=== PATIENT | female | born 1985 | race African-American/Black ===

== ENCOUNTER → 2016-09-13 | Outpatient (CLI) | payer SELFPAY ==
[2016-09-13 13:31] LABS: BASO # 0.2 K/mm3 (0.0-0.2); EOS % 0.4 % (0.0-3.0); LARGE UNSTAINED CELL # 0.1 K/mm3 (0.0-0.4); LARGE UNSTAINED CELL % 0.8 % (0.0-4.0); LYMPH # 1.5 K/mm3 (1.5-6.5); LYMPH % 12.6 % (24.0-44.0); MEAN CORPUSCULAR HEMOGLOBIN 29.8 pg (27.0-33.0); MEAN CORPUSCULAR HGB CONC 33.8 g/dl (32.0-36.5); MEAN CORPUSCULAR VOLUME 88.1 fl (80.0-96.0); MONO # 0.5 K/mm3 (0.0-0.8); MONO % 4.6 % (0.0-5.0); NEUTROPHILS # 8.8 K/mm3 (1.8-7.7); NEUTROPHILS % 79.5 % (36.0-66.0); PLATELET COUNT, AUTOMATED 254 k/mm3 (150-450); RED CELL DISTRIBUTION WIDTH 13.6 % (11.5-14.5)
[2016-09-13 13:59] LABS: HIV SCRN NEGATIVE (NEGATIVE)
[2016-09-13 14:00] LABS: CONTROL LINE INT CTR LINE PRESENT; HIV SCRN1 NEGATIVE (NEGATIVE)
--- NOTE | 2016-09-13 14:43 | REP ---
OBSTETRIC SONOGRAPHY: HISTORY: Supervision of followup anatomy. FINDINGS: Scanning through the gravid uterus demonstrates a viable single intrauterine gestation in a cephalic lie. motion is observed and heart rate is recorder 139 beats per minute. Anterior grade 1 placenta is seen without evidence of previa or abruption. Amniotic fluid is subjectively normal. Closed cervical length is 3.4 cm. No extrauterine abnormality is observed. There has been appropriate interval growth. No anomaly is seen. The following anatomic structures are identified and felt to be sonographically unremarkable: cranium, choroid plexus, cavum, cerebellum and posterior fossa, face and profile, lungs, four-chamber heart with left and right ventricular outflow tract views, diaphragm, left-sided stomach, abdominal wall cord insertion, three-vessel umbilical cord, kidneys and bladder, spine, upper and lower extremities. Biometry Chart: BPD 7.3 cm = 29 weeks 1 day HC 25.4 cm = 27 weeks 4 days AC 23.0 cm = 27 weeks 3 days FL 5.3 cm = 28 weeks 0 days HL 4.6 cm = 27 weeks 2 days CD 3.4 cm = 28 weeks 6 days HC/AC ratio normal 1.1. Cephalic index normal 0.8. Estimated weight 1119 grams, 2 pounds 7 ounces, 45th percentile for 27 weeks 4 days. IMPRESSION: Viable single intrauterine gestation at 27-week 4 days by today's composite sonographic criteria. Expected gestational age estimate based on prior sonography is 27 weeks 4 days as well. RAFAEL by prior sonography December 09, 2016. anatomic survey is felt to be complete. Signed by Corona Domínguez MD 09/13/2016 03:00 P
[2016-09-14 10:35] LABS: HBsAg Prenatal NEGATIVE (NEGATIVE)
== END ==
LOC: M SMT 10:04
PROVIDERS: ATTEND Advanced Practice Midwife
DX: Z34.82 Encounter for supervision of other normal pregnancy, second trimester (principal); Z36 Encounter for antenatal screening of mother; Z3A.27 27 weeks gestation of pregnancy

== ENCOUNTER 2016-09-19 17:34 | Emergency (ER) | payer SELFPAY ==
[2016-09-19] MEDS ORDERED: METOCLOPRAMIDE INJ 10MG/2ML VIAL (J2765) As Ordered ONE (19:16)
[2016-09-19 19:21] LABS: EOS # 0.1 K/mm3 (0.0-0.50); EOS % 0.8 % (0.0-3.0); LARGE UNSTAINED CELL % 0.4 % (0.0-4.0); LYMPH # 0.5 K/mm3 (1.5-6.5); LYMPH % 4.5 % (24.0-44.0); MEAN CORPUSCULAR HEMOGLOBIN 30.4 pg (27.0-33.0); MEAN CORPUSCULAR VOLUME 89.4 fl (80.0-96.0); MONO # 0.2 K/mm3 (0.0-0.8); NEUTROPHILS # 10.3 K/mm3 (1.8-7.7); NEUTROPHILS % 92.4 % (36.0-66.0); PLATELET COUNT, AUTOMATED 253 k/mm3 (150-450); RED CELL DISTRIBUTION WIDTH 12.6 % (11.5-14.5); WHITE BLOOD COUNT 11.1 K/mm3 (4.0-10.0)
[2016-09-19 19:45] LABS: ALBUMIN 3.3 GM/DL (3.2-5.2); ALKALINE PHOSPHATASE 116 U/L (45-117); ALT/SGPT 33 U/L (12-78); AMYLASE 179 U/L (25-115); ANION GAP 11 MEQ/L (8-16); AST/SGOT 25 U/L (15-37); BILIRUBIN,DIRECT 0.1 MG/DL (0.0-0.2); BILIRUBIN,TOTAL 0.5 MG/DL (0.2-1.0); BLOOD UREA NITROGEN 7 MG/DL (7-18); CARBON DIOXIDE LEVEL 24 MEQ/L (21-32); CHLORIDE LEVEL 105 MEQ/L (98-107); CREATININE FOR GFR 0.63 MG/DL (0.55-1.02); GLOMERULAR FILTRATION RATE > 60.0 (>60); GLUCOSE, FASTING 95 MG/DL (70-105); POTASSIUM SERUM 3.1 MEQ/L (3.5-5.1); SODIUM LEVEL 140 MEQ/L (136-145); TOTAL PROTEIN 8.8 GM/DL (6.4-8.2)
[2016-09-19] MEDS ORDERED: ACETAMINOPHEN 325 MG TAB As Ordered ONE (20:29)
--- NOTE | 2016-09-19 22:22 | EDDOCDS ---
Physician Documentation [facility] Name: Rosemarie Taveras Age: 30 yrs Sex: Female : 1985 Arrival Date: 09/19/2016 Time: 17:34 Bed I3 / M3 Private MD: NO PRIMARY PHYSICIAN, . Disposition: 09/19/16 22:08 Discharged to Home/Self Care. Impression: Vomiting, Dehydration, 28 weeks gestation of . - Condition is Stable. - Discharge Instructions: Dehydration, Adult, Nausea and Vomiting. - Medication Reconciliation, Local Pharmacy Hours form. - Follow up: Randa Lara MD; When: Call to arrange an appointment; Reason: Recheck today's complaints, Continuance of care. - Problem is new. - Symptoms are unchanged. Historical: - Allergies: No known drug Allergies; - Home Meds: 1. Ran out of vitamins (needs prescription) - PMHx: Peptic Ulcer Disease; - PSHx: Cholecystectomy; - Social history: Smoking status: Patient states was never smoker of tobacco. No barriers to communication noted, The patient speaks fluent Mexican, Speaks appropriately for age. - Family history: Not pertinent. - : The pt / caregiver states he / she is not on anticoagulants. Home medication list is obtained from the patient. - Exposure Risk Screening:: None identified. 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 11 in. (149.86 cm) (R); Pain 3/10; 22:18 BP 106 / 77; Pulse 101; Resp 18; Temp 98.2; Pulse Ox 100% ; Pain 0/10; ajs 17:36 Body Mass Index 30.50 (68.49 kg, 149.86 cm) gr2 MDM: 18:34 Urinalysis Ordered. EDMS 18:34 Urine Culture Ordered. EDMS 18:43 NS 0.9% 1000 ml IV at bolus once ordered. mo1 18:43 IV Saline Lock ordered. mo1 18:43 Metoclopramide 10 mg IV at 40 mg/hr once over 15 mins ordered. mo1 18:43 Heart Tones ordered. mo1 18:43 Basic Metabolic Profile Ordered. EDMS 18:43 CBC with Diff Ordered. EDMS 18:43 Lipase Ordered. EDMS 18:43 Liver Profile Ordered. EDMS 18:43 Amylase Ordered. EDMS 18:44 NOTHING BY MOUTH+DIET ordered. EDMS 19:19 Financial registration complete. gjb 19:22 [facility] Payment Agreement was scanned into [employer] and attached to record. gjb 19:46 CBC with Diff Reviewed. mo1 20:03 Amylase Reviewed. mo1 20:03 Liver Profile Reviewed. mo1 20:04 Basic Metabolic Profile Reviewed. mo1 20:04 Urinalysis Reviewed. mo1 20:04 Lipase Reviewed. mo1 20:05 NS 0.9% 1000 ml IV at bolus once ordered. mo1 20:28 Acetaminophen Tablet 975 mg PO once ordered. mo1 Administered Medications: 19:24 Drug: NS 0.9% 1000 ml [sodium chloride 0.9 % intravenous solution] Route: IV; Rate: js15 bolus; Site: left antecubital; 20:40 Follow up: IV Status: Completed infusion; IV Intake: 1000ml js15 20:46 Follow up: IV Intake: 1000ml mb9 19:25 Drug: Metoclopramide 10 mg [metoclopramide 5 mg/mL injection solution] Route: IV; Rate: js15 40 mg/hr; Infused Over: 15 mins; Site: left antecubital; 20:33 Drug: Acetaminophen 975 mg [acetaminophen 325 mg tablet (3 tabs)] Route: PO; mb9 20:46 Drug: NS 0.9% 1000 ml [sodium chloride 0.9 % intravenous solution] Route: IV; Rate: mb9 bolus; Site: left antecubital; 22:18 Follow up: IV Status: Completed infusion; IV Intake: 1000ml js15 Signatures: Dispatcher [employer] Christy Gentile RN RN jo3 O'Hagan, Michael, PA PA mo1 Kylee Acevedo RN RN js15 Marina Barnett Michael RN mb9 The chart was reviewed and I authenticate all verbal orders and agree with the evaluation and treatment provided.Attachments: 19:22 [facility] Payment Agreement [facility] MTDD
--- NOTE | 2016-09-19 22:22 | EDDOCDS ---
Nurse's Notes [facility] Name: Rosemarie Taveras Age: 30 yrs Sex: Female : 1985 Arrival Date: 09/19/2016 Time: 17:34 Bed I3 / M3 Private MD: NO PRIMARY PHYSICIAN, . Diagnosis: Vomiting;Dehydration;28 weeks gestation of Presentation: 09/19 17:44 Presenting complaint: Patient states: Vomiting since 0300 and having right sided jo3 back/flank pain. Pt is 28 weeks . Adult Sepsis Screening: The patient does not have new or worsening altered mentation. Patient's respiratory rate is less than 22. Systolic blood pressure is greater than 100. Patient has a qSOFA score of 0- Negative Sepsis Screen. Suicide/Homicide risk assessment- the patient denies having any suicidal and/or homicidal ideations and does not present with any other emotional, behavioral or mental health complaints. 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 Transition of care: patient was not received from another setting of care. 17:44 Acuity: MALVIN Level 3 jo3 17:44 Method Of Arrival: Walkin/Carried/Asstd jo3 Triage Assessment: 17:46 General: Appears in no apparent distress, uncomfortable, Behavior is appropriate for jo3 age, cooperative. Pain: Pain currently is 9 out of 10 on a pain scale. HIV screening NA for this visit Offered previously. Neurological: Level of Consciousness is awake, alert, Oriented to person, place, time. Respiratory: Airway is patent Respiratory effort is even, unlabored. Derm: Skin is pink, warm & dry. INSPECTOR: 17:46 LMP 03/04/2016 jo3 Historical: - Allergies: No known drug Allergies; - Home Meds: 1. Ran out of vitamins (needs prescription) - PMHx: Peptic Ulcer Disease; - PSHx: Cholecystectomy; - Social history: Smoking status: Patient states was never smoker of tobacco. No barriers to communication noted, The patient speaks fluent Thai, Speaks appropriately for age. - Family history: Not pertinent. - : The pt / caregiver states he / she is not on anticoagulants. Home medication list is obtained from the patient. - Exposure Risk Screening:: None identified. Screenin:05 Screening information is obtained from the patient. Fall risk: No risks identified. js15 Assistance ADL's: requires no assistance with activities of daily living. Abuse/DV Screen: The patient / caregiver reports he/she is: not in a situation that causes fear, pain or injury. Nutritional screening: No deficits noted. Advance Directives: There is no active DNR order. home support is adequate. Assessment: 20:04 General: Appears in no apparent distress, uncomfortable, Behavior is appropriate for js15 age, cooperative. Pain: Location: back and epigastric area Pain currently is 8 out of 10 on a pain scale. Neurological: Level of Consciousness is awake, alert, obeys commands, Oriented to person, place, time. Cardiovascular: Capillary refill < 3 seconds Heart tones S1 S2 present. Respiratory: Airway is patent Respiratory effort is even, unlabored, Respiratory pattern is regular, symmetrical. GI: Bowel sounds present X 4 quads. Abd is soft X 4 quads Abd is tender to palpation in epigastric area. GI: Abdomen is gravid Reports nausea, vomiting. Derm: Skin is normal. 21:15 Reassessment: Patient appears in no apparent distress at this time. Pt resting on js15 stretcher with friend at bedside, watching tv and using cell phone; reports relief of nausea; respirations even and unlabored; skin normal, warm, dry. 22:16 Reassessment: Patient appears in no apparent distress at this time. Patient states js15 feeling better. Patient states symptoms have improved. Pt resting on stretcher, respirations even and unlabored; skin normal, warm, dry. Vital Signs: 17:36 BP 127 / 64; Pulse 107; Resp 18 S; Temp 99.1(O); Pulse Ox 100% on R/A; Weight 68.49 kg gr2 (R); Height 4 ft. 11 in. (149.86 cm) (R); Pain 3/10; 22:18 BP 106 / 77; Pulse 101; Resp 18; Temp 98.2; Pulse Ox 100% ; Pain 0/10; ajs 17:36 Body Mass Index 30.50 (68.49 kg, 149.86 cm) gr2 Vitals: 17:36 Log In Time: September 19, 2016 at 17:36. gr2 19:35 Heart Tones 165BPM. 15 ED Course: 17:35 Patient visited by Kevin Limon. gr2 17:35 Patient moved to Waiting gr2 17:36 NO PRIMARY PHYSICIAN, . is Private Physician. gr2 17:37 Patient visited by Kevin Limon. gr2 17:37 Patient moved to Pre RCE gr2 17:45 Triage Initiated jo3 17:47 Patient visited by Christy Mackay,GUSTAVO. jo3 17:47 Patient moved to Triage 2 jo3 18:27 Patient visited by Merary Rutherford,GUSTAVO. ck1 18:31 Terry Sutton PA is PHCP. mo1 18:31 Mateo Aldrich MD is Attending Physician. mo1 18:34 Urine Culture Sent. ck1 18:34 Urinalysis Sent. ck1 18:35 Patient visited by Terry Sutton PA. mo1 18:41 Patient moved to I3 / M3 ck1 19:15 Inserted saline lock: 20 gauge in left antecubital area The patient tolerated the js15 procedure well. 19:22 [facility] Payment Agreement was scanned into [employer] and attached to record. gjb 19:25 Patient name changed from Rosemarie\S\\S\Taveras\S\ to Rosemarie\S\ \S\Taveras. EDMS 19:39 Patient visited by Kylee Acevedo RN. js15 19:40 The patient / caregiver is instructed regarding the plan of care and ED course. js15 20:35 Patient visited by Kylee Acevedo RN. js15 21:25 Patient visited by Kylee Acevedo RN. js15 22:08 Randa Lara MD is Referral Physician. mo1 22:17 Discontinued IV lock intact, bleeding controlled, pressure dressing applied, No js15 redness/swelling at site. No procedures done that require assistance. 22:18 Patient visited by Elly Lemos. ajs Administered Medications: 19:24 Drug: NS 0.9% 1000 ml [sodium chloride 0.9 % intravenous solution] Route: IV; Rate: js15 bolus; Site: left antecubital; 20:40 Follow up: IV Status: Completed infusion; IV Intake: 1000ml js15 20:46 Follow up: IV Intake: 1000ml mb9 19:25 Drug: Metoclopramide 10 mg [metoclopramide 5 mg/mL injection solution] Route: IV; Rate: js15 40 mg/hr; Infused Over: 15 mins; Site: left antecubital; 20:33 Drug: Acetaminophen 975 mg [acetaminophen 325 mg tablet (3 tabs)] Route: PO; mb9 20:46 Drug: NS 0.9% 1000 ml [sodium chloride 0.9 % intravenous solution] Route: IV; Rate: mb9 bolus; Site: left antecubital; 22:18 Follow up: IV Status: Completed infusion; IV Intake: 1000ml js15 Intake: 20:40 IV: 1000.00ml; Total: 1000.00ml. js15 20:46 IV: 1000.00ml; Total: 2000.00ml. mb9 22:18 IV: 1000.00ml; Total: 3000.00ml. js15 Order Results: Lab Order: Urinalysis; SPEC'M 09/19/16 17:52 Test: APPEARANCE, URINE; Value: HAZY; Range: CLEAR; Status: F Test: COLOR, URINE; Value: YELLOW; Range: YELLOW; Status: F Test: PH,URINE; Value: 5.0; Range: 5.0-9.0; Units: UNITS; Status: F Test: SPECIFIC GRAVITY URINE AUTO; Value: 1.020; Range: 1.002-1.035; Status: F Test: PROTEIN, URINE AUTO; Value: 1+; Range: NEGATIVE; Abnormal: Above high normal; Units: mg/dL; Status: F Test: GLUCOSE, URINE (UA) AUTO; Value: NEGATIVE; Range: NEGATIVE; Units: mg/dL; Status: F Test: KETONE, URINE AUTO; Value: 2+; Range: NEGATIVE; Abnormal: Above high normal; Units: mg/dL; Status: F Test: UROBILINOGEN, URINE AUTO; Value: 0.2; Range: 0.0-2.0; Units: mg/dL; Status: F Test: BILIRUBIN, URINE AUTO; Value: NEGATIVE; Range: NEGATIVE; Status: F Test: NITRITE, URINE AUTO; Value: NEGATIVE; Range: NEGATIVE; Status: F Test: LEUKOCYTE ESTERASE, URINE AUTO; Value: NEGATIVE; Range: NEGATIVE; Status: F Test: BLOOD, URINE BLOOD; Value: NEGATIVE; Range: NEGATIVE; Status: F Test: WBC, URINE AUTO; Value: 5; Range: 0-3; Abnormal: Above high normal; Units: /HPF; Status: F Test: RBC, URINE AUTO; Value: 1; Range: 0-3; Units: /HPF; Status: F Test: BACTERIA, URINE AUTO; Value: NEGATIVE; Range: NEGATIVE; Status: F Test: SQUAMOUS EPITHELIAL CELL UR AU; Value: 3; Range: 0-6; Units: /HPF; Status: F Test: MUCUS, URINE; Value: SMALL; Range: NEGATIVE; Status: F Test: HYALINE CAST, URINE AUTO; Value: 0; Range: 0-1; Units: /LPF; Status: F Lab Order: Basic Metabolic Profile; SPEC'M 09/19/16 19:13 Test: GLUCOSE, FASTING; Value: 95; Range: 70-105; Units: MG/DL; Status: F Test: BLOOD UREA NITROGEN; Value: 7; Range: 7-18; Units: MG/DL; Status: F Test: CREATININE FOR GFR; Value: 0.63; Range: 0.55-1.02; Units: MG/DL; Status: F Test: GLOMERULAR FILTRATION RATE; Value: > 60.0; Range: >60; Status: F Test: SODIUM LEVEL; Value: 140; Range: 136-145; Units: MEQ/L; Status: F Test: POTASSIUM SERUM; Value: 3.1; Range: 3.5-5.1; Abnormal: Below low normal; Units: MEQ/L; Status: F Test: CHLORIDE LEVEL; Value: 105; Range: 98-107; Units: MEQ/L; Status: F Test: CARBON DIOXIDE LEVEL; Value: 24; Range: 21-32; Units: MEQ/L; Status: F Test: ANION GAP; Value: 11; Range: 8-16; Units: MEQ/L; Status: F Test: CALCIUM LEVEL; Value: 9.0; Range: 8.5-10.1; Units: MG/DL; Status: F Test Note: ; Units are mL/min/1.73 m2 Chronic Kidney Disease Staging per NKF: Stage I & II GFR >=60 Normal to Mildly Decreased Stage III GFR 30-59 Moderately Decreased Stage IV GFR 15-29 Severely Decreased Stage V GFR <15 Very Little GFR Left ESRD GFR <15 on ANALYSIS SPECIALIST Lab Order: CBC with Diff; SPEC'M 09/19/16 19:13 Test: WHITE BLOOD COUNT; Value: 11.1; Range: 4.0-10.0; Abnormal: Above high normal; Units: K/mm3; Status: F Test: RED BLOOD COUNT; Value: 4.46; Range: 4.00-5.40; Units: M/mm3; Status: F Test: HEMOGLOBIN; Value: 13.5; Range: 12.0-16.0; Units: g/dl; Status: F Test: HEMATOCRIT; Value: 39.9; Range: 36.0-47.0; Units: %; Status: F Test: MEAN CORPUSCULAR VOLUME; Value: 89.4; Range: 80.0-96.0; Units: fl; Status: F Test: MEAN CORPUSCULAR HEMOGLOBIN; Value: 30.4; Range: 27.0-33.0; Units: pg; Status: F Test: MEAN CORPUSCULAR HGB CONC; Value: 34.0; Range: 32.0-36.5; Units: g/dl; Status: F Test: RED CELL DISTRIBUTION WIDTH; Value: 12.6; Range: 11.5-14.5; Units: %; Status: F Test: PLATELET COUNT, AUTOMATED; Value: 253; Range: 150-450; Units: k/mm3; Status: F Test: NEUTROPHILS %; Value: 92.4; Range: 36.0-66.0; Abnormal: Above high normal; Units: %; Status: F Test: LYMPH %; Value: 4.5; Range: 24.0-44.0; Abnormal: Below low normal; Units: %; Status: F Test: MONO %; Value: 2.0; Range: 0.0-5.0; Units: %; Status: F Test: EOS %; Value: 0.8; Range: 0.0-3.0; Units: %; Status: F Test: BASO %; Value: 0.0; Range: 0.0-1.0; Units: %; Status: F Test: LARGE UNSTAINED CELL %; Value: 0.4; Range: 0.0-4.0; Units: %; Status: F Test: NEUTROPHILS #; Value: 10.3; Range: 1.8-7.7; Abnormal: Above high normal; Units: K/mm3; Status: F Test: LYMPH #; Value: 0.5; Range: 1.5-6.5; Abnormal: Below low normal; Units: K/mm3; Status: F Test: MONO #; Value: 0.2; Range: 0.0-0.8; Units: K/mm3; Status: F Test: EOS #; Value: 0.1; Range: 0.0-0.50; Units: K/mm3; Status: F Test: BASO #; Value: 0.0; Range: 0.0-0.2; Units: K/mm3; Status: F Test: LARGE UNSTAINED CELL #; Value: 0.0; Range: 0.0-0.4; Units: K/mm3; Status: F Lab Order: Lipase; [facility] 09/19/16 19:13 Test: LIPASE; Value: 144; Range: 73-393; Units: U/L; Status: F Lab Order: Liver Profile; [facility] 09/19/16 19:13 Test: AST/SGOT; Value: 25; Range: 15-37; Units: U/L; Status: F Test: ALT/SGPT; Value: 33; Range: 12-78; Units: U/L; Status: F Test: ALKALINE PHOSPHATASE; Value: 116; Range: 45-117; Units: U/L; Status: F Test: BILIRUBIN,TOTAL; Value: 0.5; Range: 0.2-1.0; Units: MG/DL; Status: F Test: BILIRUBIN,DIRECT; Value: 0.1; Range: 0.0-0.2; Units: MG/DL; Status: F Test: TOTAL PROTEIN; Value: 8.8; Range: 6.4-8.2; Abnormal: Above high normal; Units: GM/DL; Status: F Test: ALBUMIN; Value: 3.3; Range: 3.2-5.2; Units: GM/DL; Status: F Test: ALBUMIN/GLOBULIN RATIO; Value: 0.60; Range: 1.00-1.93; Abnormal: Below low normal; Status: F Lab Order: Amylase; [facility] 09/19/16 19:13 Test: AMYLASE; Value: 179; Range: 25-115; Abnormal: Above high normal; Units: U/L; Status: F Outcome: 22:08 Discharge ordered by Provider. mo1 22:17 Discharge Assessment: Patient awake, alert and oriented x 3. No cognitive and/or js15 functional deficits noted. Patient verbalized understanding of disposition instructions. patient administered narcotics - no. The following High Risk Discharge criteria are identified: None. Discharged to home ambulatory. Condition: stable. Discharge instructions given to patient, Instructed on discharge instructions, follow up and referral plans. Demonstrated understanding of instructions, Pt was receptive of discharge instructions/ teaching. No special radiology studies were completed. Property sent home with patient. 22:21 Patient left the ED. js15 Signatures: Dispatcher [employer] EDMS Merary Rutherford,RN RN ck1 Christy Mackay,RN RN jo3 Elly Lemos [place] gr2 Terry Sutton PA PA [email or web address] Terry Soto,RN RN mb9 Kylee AcevedoRN RN js15 Marina Barnett [place]
--- NOTE | 2016-09-21 23:22 | EDDOCDS ---
Nurse's Notes [facility] Name: Rosemarie Taveras Age: 30 yrs Sex: Female : 1985 Arrival Date: 09/19/2016 Time: 17:34 Bed I3 / M3 Private MD: NO PRIMARY PHYSICIAN, . Diagnosis: Vomiting;Dehydration;28 weeks gestation of Presentation: 09/19 17:44 Presenting complaint: Patient states: Vomiting since 0300 and having right sided jo3 back/flank pain. Pt is 28 weeks . Adult Sepsis Screening: The patient does not have new or worsening altered mentation. Patient's respiratory rate is less than 22. Systolic blood pressure is greater than 100. Patient has a qSOFA score of 0- Negative Sepsis Screen. Suicide/Homicide risk assessment- the patient denies having any suicidal and/or homicidal ideations and does not present with any other emotional, behavioral or mental health complaints. Status: Patient is not a director water and waste services or dependent. Transition of care: patient was not received from another setting of care. 17:44 Acuity: MALVIN Level 3 jo3 17:44 Method Of Arrival: Walkin/Carried/Asstd jo3 Triage Assessment: 17:46 General: Appears in no apparent distress, uncomfortable, Behavior is appropriate for jo3 age, cooperative. Pain: Pain currently is 9 out of 10 on a pain scale. HIV screening NA for this visit Offered previously. Neurological: Level of Consciousness is awake, alert, Oriented to person, place, time. Respiratory: Airway is patent Respiratory effort is even, unlabored. Derm: Skin is pink, warm & dry. 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 Ran out of vitamins (needs prescription) - PMHx: Peptic Ulcer Disease; - PSHx: Cholecystectomy; - Social history: Smoking status: Patient states was never smoker of tobacco. No barriers to communication noted, The patient speaks fluent Hebrew, Speaks appropriately for age. - Family history: Not pertinent. - : The pt / caregiver states he / she is not on anticoagulants. Home medication list is obtained from the patient. - Exposure Risk Screening:: None identified. Screenin:05 Screening information is obtained from the patient. Fall risk: No risks identified. js15 Assistance ADL's: requires no assistance with activities of daily living. Abuse/DV Screen: The patient / caregiver reports he/she is: not in a situation that causes fear, pain or injury. Nutritional screening: No deficits noted. Advance Directives: There is no active DNR order. home support is adequate. Assessment: 20:04 General: Appears in no apparent distress, uncomfortable, Behavior is appropriate for js15 age, cooperative. Pain: Location: back and epigastric area Pain currently is 8 out of 10 on a pain scale. Neurological: Level of Consciousness is awake, alert, obeys commands, Oriented to person, place, time. Cardiovascular: Capillary refill < 3 seconds Heart tones S1 S2 present. Respiratory: Airway is patent Respiratory effort is even, unlabored, Respiratory pattern is regular, symmetrical. GI: Bowel sounds present X 4 quads. Abd is soft X 4 quads Abd is tender to palpation in epigastric area. GI: Abdomen is gravid Reports nausea, vomiting. Derm: Skin is normal. 21:15 Reassessment: Patient appears in no apparent distress at this time. Pt resting on js15 stretcher with friend at bedside, watching tv and using cell phone; reports relief of nausea; respirations even and unlabored; skin normal, warm, dry. 22:16 Reassessment: Patient appears in no apparent distress at this time. Patient states js15 feeling better. Patient states symptoms have improved. Pt resting on stretcher, respirations even and unlabored; skin normal, warm, dry. Vital Signs: 17:36 BP 127 / 64; Pulse 107; Resp 18 S; Temp 99.1(O); Pulse Ox 100% on R/A; Weight 68.49 kg gr2 (R); Height 4 ft. 11 in. (149.86 cm) (R); Pain 3/10; 22:18 BP 106 / 77; Pulse 101; Resp 18; Temp 98.2; Pulse Ox 100% ; Pain 0/10; ajs 17:36 Body Mass Index 30.50 (68.49 kg, 149.86 cm) gr2 Vitals: 17:36 Log In Time: September 19, 2016 at 17:36. gr2 19:35 Heart Tones 165BPM. 15 ED Course: 17:35 Patient visited by Kevin Limon. gr2 17:35 Patient moved to Waiting gr2 17:36 NO PRIMARY PHYSICIAN, . is Private Physician. gr2 17:37 Patient visited by Kevin Limon. gr2 17:37 Patient moved to Pre RCE gr2 17:45 Triage Initiated jo3 17:47 Patient visited by Christy Mackay,GUSTAVO. jo3 17:47 Patient moved to Triage 2 jo3 18:27 Patient visited by Merary Rutherford,GUSTAVO. ck1 18:31 Terry Sutton PA is PHCP. mo1 18:31 Mateo Aldrich MD is Attending Physician. mo1 18:34 Urine Culture Sent. ck1 18:34 Urinalysis Sent. ck1 18:35 Patient visited by Terry Sutton PA. mo1 18:41 Patient moved to I3 / M3 ck1 19:15 Inserted saline lock: 20 gauge in left antecubital area The patient tolerated the js15 procedure well. 19:22 [facility] [place] was scanned into Fluid-1 and attached to record. gjb 19:25 Patient name changed from Rosemarie\S\\S\Taveras\S\ to Rosemarie\S\ \S\Taveras. EDMS 19:39 Patient visited by Kylee Acevedo RN. js15 19:40 The patient / caregiver is instructed regarding the plan of care and ED course. js15 20:35 Patient visited by Kylee Acevedo,GUSTAVO. js15 21:25 Patient visited by Kylee Acevedo,GUSTAVO. js15 22:08 Randa Lara MD is Referral Physician. mo1 22:17 Discontinued IV lock intact, bleeding controlled, pressure dressing applied, No js15 redness/swelling at site. No procedures done that require assistance. 22:18 Patient visited by Elly Lemos. ajs 02 12:20 T-Sheet-- Draft Copy was scanned into Fluid-1 and attached to record. gb Administered Medications: 09/19 19:24 Drug: NS 0.9% 1000 ml [sodium chloride 0.9 % intravenous solution] Route: IV; Rate: js15 bolus; Site: left antecubital; 20:40 Follow up: IV Status: Completed infusion; IV Intake: 1000ml js15 20:46 Follow up: IV Intake: 1000ml mb9 19:25 Drug: Metoclopramide 10 mg [metoclopramide 5 mg/mL injection solution] Route: IV; Rate: js15 40 mg/hr; Infused Over: 15 mins; Site: left antecubital; 20:33 Drug: Acetaminophen 975 mg [acetaminophen 325 mg tablet (3 tabs)] Route: PO; mb9 20:46 Drug: NS 0.9% 1000 ml [sodium chloride 0.9 % intravenous solution] Route: IV; Rate: mb9 bolus; Site: left antecubital; 22:18 Follow up: IV Status: Completed infusion; IV Intake: 1000ml js15 Intake: 20:40 IV: 1000.00ml; Total: 1000.00ml. js15 20:46 IV: 1000.00ml; Total: 2000.00ml. mb9 22:18 IV: 1000.00ml; Total: 3000.00ml. js15 Order Results: Lab Order: Urinalysis; SPEC'M 09/19/16 17:52 Test: APPEARANCE, URINE; Value: HAZY; Range: CLEAR; Status: F Test: COLOR, URINE; Value: YELLOW; Range: YELLOW; Status: F Test: PH,URINE; Value: 5.0; Range: 5.0-9.0; Units: UNITS; Status: F Test: SPECIFIC GRAVITY URINE AUTO; Value: 1.020; Range: 1.002-1.035; Status: F Test: PROTEIN, URINE AUTO; Value: 1+; Range: NEGATIVE; Abnormal: Above high normal; Units: mg/dL; Status: F Test: GLUCOSE, URINE (UA) AUTO; Value: NEGATIVE; Range: NEGATIVE; Units: mg/dL; Status: F Test: KETONE, URINE AUTO; Value: 2+; Range: NEGATIVE; Abnormal: Above high normal; Units: mg/dL; Status: F Test: UROBILINOGEN, URINE AUTO; Value: 0.2; Range: 0.0-2.0; Units: mg/dL; Status: F Test: BILIRUBIN, URINE AUTO; Value: NEGATIVE; Range: NEGATIVE; Status: F Test: NITRITE, URINE AUTO; Value: NEGATIVE; Range: NEGATIVE; Status: F Test: LEUKOCYTE ESTERASE, URINE AUTO; Value: NEGATIVE; Range: NEGATIVE; Status: F Test: BLOOD, URINE BLOOD; Value: NEGATIVE; Range: NEGATIVE; Status: F Test: WBC, URINE AUTO; Value: 5; Range: 0-3; Abnormal: Above high normal; Units: /HPF; Status: F Test: RBC, URINE AUTO; Value: 1; Range: 0-3; Units: /HPF; Status: F Test: BACTERIA, URINE AUTO; Value: NEGATIVE; Range: NEGATIVE; Status: F Test: SQUAMOUS EPITHELIAL CELL UR AU; Value: 3; Range: 0-6; Units: /HPF; Status: F Test: MUCUS, URINE; Value: SMALL; Range: NEGATIVE; Status: F Test: HYALINE CAST, URINE AUTO; Value: 0; Range: 0-1; Units: /LPF; Status: F Lab Order: Urine Culture; SPEC'M 09/19/16 17:52 Test: URINE CULTURE; Value: <EXTERNAL COMMENT eCWMed> FULL REPORT IN LAB NOTES (eCW and Medent).; Status: F Test: URINE CULTURE; Value: URINE CULTURE RESULT NO GROWTH CLINICAL SIGNIFICANCE 1 ORGANISM; Status: F Lab Order: Basic Metabolic Profile; SPEC'M 09/19/16 19:13 Test: GLUCOSE, FASTING; Value: 95; Range: 70-105; Units: MG/DL; Status: F Test: BLOOD UREA NITROGEN; Value: 7; Range: 7-18; Units: MG/DL; Status: F Test: CREATININE FOR GFR; Value: 0.63; Range: 0.55-1.02; Units: MG/DL; Status: F Test: GLOMERULAR FILTRATION RATE; Value: > 60.0; Range: >60; Status: F Test: SODIUM LEVEL; Value: 140; Range: 136-145; Units: MEQ/L; Status: F Test: POTASSIUM SERUM; Value: 3.1; Range: 3.5-5.1; Abnormal: Below low normal; Units: MEQ/L; Status: F Test: CHLORIDE LEVEL; Value: 105; Range: 98-107; Units: MEQ/L; Status: F Test: CARBON DIOXIDE LEVEL; Value: 24; Range: 21-32; Units: MEQ/L; Status: F Test: ANION GAP; Value: 11; Range: 8-16; Units: MEQ/L; Status: F Test: CALCIUM LEVEL; Value: 9.0; Range: 8.5-10.1; Units: MG/DL; Status: F Test Note: ; Units are mL/min/1.73 m2 Chronic Kidney Disease Staging per NKF: Stage I & II GFR >=60 Normal to Mildly Decreased Stage III GFR 30-59 Moderately Decreased Stage IV GFR 15-29 Severely Decreased Stage V GFR <15 Very Little GFR Left ESRD GFR <15 on SPACE BUYER Lab Order: CBC with Diff; STEVEN 09/19/16 19:13 Test: WHITE BLOOD COUNT; Value: 11.1; Range: 4.0-10.0; Abnormal: Above high normal; Units: K/mm3; Status: F Test: RED BLOOD COUNT; Value: 4.46; Range: 4.00-5.40; Units: M/mm3; Status: F Test: HEMOGLOBIN; Value: 13.5; Range: 12.0-16.0; Units: g/dl; Status: F Test: HEMATOCRIT; Value: 39.9; Range: 36.0-47.0; Units: %; Status: F Test: MEAN CORPUSCULAR VOLUME; Value: 89.4; Range: 80.0-96.0; Units: fl; Status: F Test: MEAN CORPUSCULAR HEMOGLOBIN; Value: 30.4; Range: 27.0-33.0; Units: pg; Status: F Test: MEAN CORPUSCULAR HGB CONC; Value: 34.0; Range: 32.0-36.5; Units: g/dl; Status: F Test: RED CELL DISTRIBUTION WIDTH; Value: 12.6; Range: 11.5-14.5; Units: %; Status: F Test: PLATELET COUNT, AUTOMATED; Value: 253; Range: 150-450; Units: k/mm3; Status: F Test: NEUTROPHILS %; Value: 92.4; Range: 36.0-66.0; Abnormal: Above high normal; Units: %; Status: F Test: LYMPH %; Value: 4.5; Range: 24.0-44.0; Abnormal: Below low normal; Units: %; Status: F Test: MONO %; Value: 2.0; Range: 0.0-5.0; Units: %; Status: F Test: EOS %; Value: 0.8; Range: 0.0-3.0; Units: %; Status: F Test: BASO %; Value: 0.0; Range: 0.0-1.0; Units: %; Status: F Test: LARGE UNSTAINED CELL %; Value: 0.4; Range: 0.0-4.0; Units: %; Status: F Test: NEUTROPHILS #; Value: 10.3; Range: 1.8-7.7; Abnormal: Above high normal; Units: K/mm3; Status: F Test: LYMPH #; Value: 0.5; Range: 1.5-6.5; Abnormal: Below low normal; Units: K/mm3; Status: F Test: MONO #; Value: 0.2; Range: 0.0-0.8; Units: K/mm3; Status: F Test: EOS #; Value: 0.1; Range: 0.0-0.50; Units: K/mm3; Status: F Test: BASO #; Value: 0.0; Range: 0.0-0.2; Units: K/mm3; Status: F Test: LARGE UNSTAINED CELL #; Value: 0.0; Range: 0.0-0.4; Units: K/mm3; Status: F Lab Order: Lipase; [facility] 09/19/16 19:13 Test: LIPASE; Value: 144; Range: 73-393; Units: U/L; Status: F Lab Order: Liver Profile; [facility] 09/19/16 19:13 Test: AST/SGOT; Value: 25; Range: 15-37; Units: U/L; Status: F Test: ALT/SGPT; Value: 33; Range: 12-78; Units: U/L; Status: F Test: ALKALINE PHOSPHATASE; Value: 116; Range: 45-117; Units: U/L; Status: F Test: BILIRUBIN,TOTAL; Value: 0.5; Range: 0.2-1.0; Units: MG/DL; Status: F Test: BILIRUBIN,DIRECT; Value: 0.1; Range: 0.0-0.2; Units: MG/DL; Status: F Test: TOTAL PROTEIN; Value: 8.8; Range: 6.4-8.2; Abnormal: Above high normal; Units: GM/DL; Status: F Test: ALBUMIN; Value: 3.3; Range: 3.2-5.2; Units: GM/DL; Status: F Test: ALBUMIN/GLOBULIN RATIO; Value: 0.60; Range: 1.00-1.93; Abnormal: Below low normal; Status: F Lab Order: Amylase; SPEC'M 09/19/16 19:13 Test: AMYLASE; Value: 179; Range: 25-115; Abnormal: Above high normal; Units: U/L; Status: F Outcome: 22:08 Discharge ordered by Provider. mo1 22:17 Discharge Assessment: Patient awake, alert and oriented x 3. No cognitive and/or js15 functional deficits noted. Patient verbalized understanding of disposition instructions. patient administered narcotics - no. The following High Risk Discharge criteria are identified: None. Discharged to home ambulatory. Condition: stable. Discharge instructions given to patient, Instructed on discharge instructions, follow up and referral plans. Demonstrated understanding of instructions, Pt was receptive of discharge instructions/ teaching. No special radiology studies were completed. Property sent home with patient. 22:21 Patient left the ED. js15 Signatures: Dispatcher MedHost EDMS Jessica Burns, Reg Reg gb Merary Rutherford,RN RN ck1 Christy Mackay,RN RN jo3 Elly Lemos Gainslee gr2 Terry Sutton PA PA mo1 Terry Soto,RN RN mb9 Kylee AcevedoRN RN js15 Marina Barnett Chart Complete MTDD
--- NOTE | 2016-09-21 23:22 | EDDOCDS ---
Physician Documentation [facility] Name: Rosemarie Taveras Age: 30 yrs Sex: Female : 1985 Arrival Date: 09/19/2016 Time: 17:34 Bed I3 / M3 Private MD: NO PRIMARY PHYSICIAN, . Disposition: 09/19/16 22:08 Discharged to Home/Self Care. Impression: Vomiting, Dehydration, 28 weeks gestation of . - Condition is Stable. - Discharge Instructions: Dehydration, Adult, Nausea and Vomiting. - Medication Reconciliation, Local Pharmacy Hours form. - Follow up: Randa Lara MD; When: Call to arrange an appointment; Reason: Recheck today's complaints, Continuance of care. - Problem is new. - Symptoms are unchanged. Historical: - Allergies: No known drug Allergies; - Home Meds: 1. Ran out of vitamins (needs prescription) - PMHx: Peptic Ulcer Disease; - PSHx: Cholecystectomy; - Social history: Smoking status: Patient states was never smoker of tobacco. No barriers to communication noted, The patient speaks fluent Burkinan, Speaks appropriately for age. - Family history: Not pertinent. - : The pt / caregiver states he / she is not on anticoagulants. Home medication list is obtained from the patient. - Exposure Risk Screening:: None identified. 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 11 in. (149.86 cm) (R); Pain 3/10; 22:18 BP 106 / 77; Pulse 101; Resp 18; Temp 98.2; Pulse Ox 100% ; Pain 0/10; ajs 17:36 Body Mass Index 30.50 (68.49 kg, 149.86 cm) gr2 MDM: 18:34 Urinalysis Ordered. EDMS 18:34 Urine Culture Ordered. EDMS 18:43 NS 0.9% 1000 ml IV at bolus once ordered. mo1 18:43 IV Saline Lock ordered. mo1 18:43 Metoclopramide 10 mg IV at 40 mg/hr once over 15 mins ordered. mo1 18:43 Heart Tones ordered. mo1 18:43 Basic Metabolic Profile Ordered. EDMS 18:43 CBC with Diff Ordered. EDMS 18:43 Lipase Ordered. EDMS 18:43 Liver Profile Ordered. EDMS 18:43 Amylase Ordered. EDMS 18:44 NOTHING BY MOUTH+DIET ordered. EDMS 19:19 Financial registration complete. gjb 19:22 [facility] [place] Payment Agreement was scanned into QuantuModeling and attached to record. gjb 19:46 CBC with Diff Reviewed. mo1 20:03 Amylase Reviewed. mo1 20:03 Liver Profile Reviewed. mo1 20:04 Basic Metabolic Profile Reviewed. mo1 20:04 Urinalysis Reviewed. mo1 20:04 Lipase Reviewed. mo1 20:05 NS 0.9% 1000 ml IV at bolus once ordered. mo1 20:28 Acetaminophen Tablet 975 mg PO once ordered. mo1 02 12:20 T-Sheet-- Draft Copy was scanned into [employer]Modeling and attached to record. gb Administered Medications: 09/19 19:24 Drug: NS 0.9% 1000 ml [sodium chloride 0.9 % intravenous solution] Route: IV; Rate: js15 bolus; Site: left antecubital; 20:40 Follow up: IV Status: Completed infusion; IV Intake: 1000ml js15 20:46 Follow up: IV Intake: 1000ml mb9 19:25 Drug: Metoclopramide 10 mg [metoclopramide 5 mg/mL injection solution] Route: IV; Rate: js15 40 mg/hr; Infused Over: 15 mins; Site: left antecubital; 20:33 Drug: Acetaminophen 975 mg [acetaminophen 325 mg tablet (3 tabs)] Route: PO; mb9 20:46 Drug: NS 0.9% 1000 ml [sodium chloride 0.9 % intravenous solution] Route: IV; Rate: mb9 bolus; Site: left antecubital; 22:18 Follow up: IV Status: Completed infusion; IV Intake: 1000ml js15 Signatures: Dispatcher MedHost EDMS Jessica Burns, Reg Reg gb Christy Mackay RN RN jo3 O'Hagan, Michael, PA PA mo1 Kylee Acevedo RN RN js15 Marina Barnett Michael RN mb9 The chart was reviewed and I authenticate all verbal orders and agree with the evaluation and treatment provided.Attachments: 19:22 [facility] [place] Payment Agreement gjb 09/20 12:20 T-Sheet-- Draft Copy gb Chart Complete MTDD
--- NOTE | 2016-09-21 23:22 | EDDOCDS ---
Physician Documentation [facility] Name: Rosemarie Taveras Age: 30 yrs Sex: Female : 1985 Arrival Date: 09/19/2016 Time: 17:34 Bed I3 / M3 Private MD: NO PRIMARY PHYSICIAN, . Disposition: 09/19/16 22:08 Discharged to Home/Self Care. Impression: Vomiting, Dehydration, 28 weeks gestation of . - Condition is Stable. - Discharge Instructions: Dehydration, Adult, Nausea and Vomiting. - Medication Reconciliation, Local Pharmacy Hours form. - Follow up: Randa Lara MD; When: Call to arrange an appointment; Reason: Recheck today's complaints, Continuance of care. - Problem is new. - Symptoms are unchanged. Historical: - Allergies: No known drug Allergies; - Home Meds: 1. Ran out of vitamins (needs prescription) - PMHx: Peptic Ulcer Disease; - PSHx: Cholecystectomy; - Social history: Smoking status: Patient states was never smoker of tobacco. No barriers to communication noted, The patient speaks fluent Zimbabwean, Speaks appropriately for age. - Family history: Not pertinent. - : The pt / caregiver states he / she is not on anticoagulants. Home medication list is obtained from the patient. - Exposure Risk Screening:: None identified. 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 11 in. (149.86 cm) (R); Pain 3/10; 22:18 BP 106 / 77; Pulse 101; Resp 18; Temp 98.2; Pulse Ox 100% ; Pain 0/10; ajs 17:36 Body Mass Index 30.50 (68.49 kg, 149.86 cm) gr2 MDM: 18:34 Urinalysis Ordered. EDMS 18:34 Urine Culture Ordered. EDMS 18:43 NS 0.9% 1000 ml IV at bolus once ordered. mo1 18:43 IV Saline Lock ordered. mo1 18:43 Metoclopramide 10 mg IV at 40 mg/hr once over 15 mins ordered. mo1 18:43 Heart Tones ordered. mo1 18:43 Basic Metabolic Profile Ordered. EDMS 18:43 CBC with Diff Ordered. EDMS 18:43 Lipase Ordered. EDMS 18:43 Liver Profile Ordered. EDMS 18:43 Amylase Ordered. EDMS 18:44 NOTHING BY MOUTH+DIET ordered. EDMS 19:19 Financial registration complete. gjb 19:22 [facility] [place] Agreement was scanned into ShaveLogic and attached to record. gjb 19:46 CBC with Diff Reviewed. mo1 20:03 Amylase Reviewed. mo1 20:03 Liver Profile Reviewed. mo1 20:04 Basic Metabolic Profile Reviewed. mo1 20:04 Urinalysis Reviewed. mo1 20:04 Lipase Reviewed. mo1 20:05 NS 0.9% 1000 ml IV at bolus once ordered. mo1 20:28 Acetaminophen Tablet 975 mg PO once ordered. mo1 02 12:20 T-Sheet-- Draft Copy was scanned into ShaveLogic and attached to record. gb Administered Medications: 09/19 19:24 Drug: NS 0.9% 1000 ml [sodium chloride 0.9 % intravenous solution] Route: IV; Rate: js15 bolus; Site: left antecubital; 20:40 Follow up: IV Status: Completed infusion; IV Intake: 1000ml js15 20:46 Follow up: IV Intake: 1000ml mb9 19:25 Drug: Metoclopramide 10 mg [metoclopramide 5 mg/mL injection solution] Route: IV; Rate: js15 40 mg/hr; Infused Over: 15 mins; Site: left antecubital; 20:33 Drug: Acetaminophen 975 mg [acetaminophen 325 mg tablet (3 tabs)] Route: PO; mb9 20:46 Drug: NS 0.9% 1000 ml [sodium chloride 0.9 % intravenous solution] Route: IV; Rate: mb9 bolus; Site: left antecubital; 22:18 Follow up: IV Status: Completed infusion; IV Intake: 1000ml js15 Signatures: Dispatcher MedHost EDMS Jessica Burns, Reg Reg gb Christy Mackay RN RN jo3 O'Hagan, Michael, PA PA mo1 Kylee Acevedo RN RN js15 Marina Barnett Michael RN mb9 The chart was reviewed and I authenticate all verbal orders and agree with the evaluation and treatment provided.Attachments: 19:22 [facility] Payment Agreement gjb 09/20 12:20 T-Sheet-- Draft Copy gb Chart Complete MTDD
== END 2016-09-19 22:21 | disposition home or self-care (01) ==
LOC: M ED 17:34
DX: O21.9 Vomiting of pregnancy, unspecified (principal); E86.0 Dehydration; K27.9 Peptic ulcer, site unspecified, unspecified as acute or chronic, without hemorrhage or perforation; Z3A.28 28 weeks gestation of pregnancy
CPT/HCPCS: 36415; 80048; 80076; 81001; 82150; 83690; 85025; 87086; 96361; 96374; 99284; J2765

== ENCOUNTER 2016-10-25 18:35 | Outpatient (CLI) | payer SELFPAY ==
[~2016-10-25] VITALS: Ht 149.9 cm; Wt 66.0 kg
[2016-10-25 18:48] VITALS: BP 132/82
[2016-10-25] MEDS ORDERED: BETAMETHASONE SOLUSPAN 6MG/ML INJ 5ML (J0702) IM SCH (19:45)
== END 2016-10-25 23:00 | disposition home or self-care (01) ==
LOC: M LDO 18:35
PROVIDERS: ATTEND Obstetrics & Gynecology
DX: O47.03 False labor before 37 completed weeks of gestation, third trimester (principal); Z3A.33 33 weeks gestation of pregnancy
CPT/HCPCS: 59025; 80306; 81001; 87086; 96372; G0480; J0702

== ENCOUNTER → 2016-10-30 | Outpatient (CLI) | payer MEDICAID ==
[~2016-10-30] MED LIST: PRENTAB9 PO
[2016-10-30 14:03] LABS: MEAN CORPUSCULAR HEMOGLOBIN 28.2 pg (27.0-33.0); MEAN CORPUSCULAR HGB CONC 31.9 g/dl (32.0-36.5); MEAN CORPUSCULAR VOLUME 88.5 fl (80.0-96.0); RED CELL DISTRIBUTION WIDTH 13.7 % (11.5-14.5); WHITE BLOOD COUNT 10.9 K/mm3 (4.0-10.0)
== END ==
LOC: M SMT 10:01
PROVIDERS: ATTEND Advanced Practice Midwife
DX: Z34.82 Encounter for supervision of other normal pregnancy, second trimester (principal); Z36 Encounter for antenatal screening of mother

== ENCOUNTER 2016-11-02 08:45 | Outpatient (CLI) | payer MEDICAID, SELFPAY ==
[~2016-11-02] VITALS: Ht 149.9 cm; Wt 68.0 kg
[2016-11-02] MEDS ORDERED: OXYTOCIN 30 UNITS IN 0.9% NaCl 500ML IV BAG (J2590) As Ordered ONE (09:13)
[2016-11-02] MEDS ORDERED: OXYTOCIN INJ 10 UNITS/ML VIAL (J2590) IV STA (09:38)
[2016-11-02 09:45] VITALS: BP 123/68
[2016-11-02] MEDS ORDERED: PRENTAB9 PO (09:54)
[2016-11-02 11:06] LABS: MEAN CORPUSCULAR HEMOGLOBIN 29.1 pg (27.0-33.0); MEAN CORPUSCULAR HGB CONC 33.6 g/dl (32.0-36.5); MEAN CORPUSCULAR VOLUME 86.7 fl (80.0-96.0); RED CELL DISTRIBUTION WIDTH 13.7 % (11.5-14.5); WHITE BLOOD COUNT 10.7 K/mm3 (4.0-10.0)
[2016-11-07 00:06] LABS: GC Carboxy THC >300 ng/mL (Cutoff=10)
== END 2016-11-02 13:50 | disposition home or self-care (01) ==
LOC: M LDO 08:45 → M LDI 09:00 → UNDOADMIN 09:00 → M LDO 13:50 → UNDODISIN 13:50
PROVIDERS: ATTEND Advanced Practice Midwife
DX: O47.03 False labor before 37 completed weeks of gestation, third trimester (principal); Z3A.34 34 weeks gestation of pregnancy
CPT/HCPCS: 59025; 80306; 85027; 86780; 87081; 87186; G0480; J2590

== ENCOUNTER 2016-11-15 06:18 | Inpatient (IN) | payer MEDICAID, SELFPAY ==
[~2016-11-15] VITALS: Ht 149.9 cm; Wt 68.5 kg
[2016-11-15] VITALS (7 sets, daily range): BP systolic 111–142; BP diastolic 59–75
[2016-11-15] MEDS ORDERED: PENICILLIN POTASSIUM MU IV STA (06:41)
[2016-11-15] MEDS ORDERED: D5W IV STA (06:41)
[2016-11-15] MEDS ORDERED: OXYTOCIN 30 UNITS IN 0.9% NaCl 500ML IV BAG (J2590) As Ordered ONE (06:43)
--- NOTE | 2016-11-15 06:43 | HPE ---
DATE OF ADMISSION: 11/15/2016 HISTORY: 31-year-old G8, P3-2-2-5 female at 36-4/7 weeks gestation by LMP consistent with 21 week ultrasound. EDC 12/13/2016 presents with regular contractions and rectal pressure. She presented by ambulance. She denies loss of fluid or vaginal bleeding. COURSE: Patient's course is significant for late care, she only had two visits and missed several appointments as well. OBSTETRICAL HISTORY: 1. In May 2004, 38 week vaginal delivery 7 pound 6 ounce female infant. 2. July 2006, 36 week vaginal delivery male . 3. 2009, 40 week vaginal delivery 6 pound 1 ounce female . 4. 2012 vaginal delivery 7 pound 8 ounce male infant. 5. November 2014, 36 week vaginal delivery 4 pound 7 ounce male . MEDICAL HISTORY: Noncontributory. SURGERIES: Cholecystectomy. ALLERGIES: No known drug allergies. SOCIAL HISTORY: Patient has a history of marijuana on drug screen. She has a poor social history and little social support. FAMILY HISTORY: Noncontributory. PHYSICAL EXAMINATION: Blood pressure 130/78. Appears uncomfortable. Head and neck exam: Normal. Lungs: Clear. Heart: Regular rate and rhythm. Abdomen: Nontender, gravid. heart tones category 1. Contractions every 3-4 minutes. Cervix 6 cm, 100% effaced, -1 station, bulging membranes intact. Extremities: Nontender. LABS: A positive, Rubella immune, RPR nonreactive. Hepatitis B and C negative, HIV negative. Diabetes screen 121. Group B Streptococcus (GBS) positive on 11/02/2016. ASSESSMENT: 31 year old G8, P3-2-2-5 female at 36-4/7 weeks gestation presents in active labor. Patient is admitted on 11/15/2016.
[2016-11-15] MEDS ORDERED: ONDANSETRON 4MG/2ML VIAL (J2405) IV SCH (07:00)
[2016-11-15] MEDS ORDERED: PENICILLIN G POTASSIUM 5 MU VIAL As Ordered ONE ×2 (07:21→07:26)
[2016-11-15] MEDS ORDERED: PENICILLIN G POTASSIUM IV 5 MU in D5W MINI-BAG PLUS 100 ML IV ONE (07:30)
[2016-11-15] MEDS ORDERED: DIBUCAINE 1% OINTMENT 30GM TOP PRN (07:45)
[2016-11-15] MEDS ORDERED: DOCUSATE SODIUM 100 MG CAP PO PRN (07:45)
[2016-11-15] MEDS ORDERED: IBUPROFEN 800 MG TAB PO PRN (07:45)
[2016-11-15] MEDS ORDERED: MEASLES,MUMPS,RUBELLA VACCINE INJ (MMR-II) (90707) SC SCH (07:45)
[2016-11-15] MEDS ORDERED: METHYLERGONOVINE MALEATE 0.2 MG TAB PO PRN (07:45)
[2016-11-15] MEDS ORDERED: RHOGAM 300 MCG (1500 IU) INJ (J2790) IM SCH (07:45)
[2016-11-15] MEDS ORDERED: OXYTOCIN DRIP 30 UNITS in APPROPRIATE DILUENT 1 EA IV ONE (07:45)
[2016-11-15] MEDS ORDERED: ACETAMINOPHEN 500 MG TAB PO PRN (07:45)
--- NOTE | 2016-11-15 08:12 | DN ---
DATE OF DELIVERY: 11/15/2016 PRE-DELIVERY DIAGNOSIS: 36-4/7 weeks gestation in labor. POST DELIVERY DIAGNOSIS: Delivered. PROCEDURE: Spontaneous vaginal delivery. PROJECT RESERVOIR ENGINEER: Dr. Aayush Escudero. ANESTHESIA: None. ESTIMATED BLOOD LOSS: 300 mL. FINDINGS: 5 pound 4 ounce male , 8 and 9. DELIVERY SUMMARY: After short second stage, the patient had spontaneous delivery of a 5 pound 4 ounce male , 8 and 9 with no delivery anesthesia. There is no nuchal cord. The shoulders delivered with ease. The infant cried spontaneously and was handed to the mother. The cord was doubly clamped and cut. Placenta delivered spontaneously and appeared to be intact. The patient received IV Pitocin immediately after delivery of the placenta. There were no vaginal lacerations present.
[2016-11-15 08:27] LABS: MEAN CORPUSCULAR HEMOGLOBIN 27.6 pg (27.0-33.0); MEAN CORPUSCULAR VOLUME 86.2 fl (80.0-96.0); RED CELL DISTRIBUTION WIDTH 14.8 % (11.5-14.5); WHITE BLOOD COUNT 16.6 K/mm3 (4.0-10.0)
[2016-11-15] MEDS: PRENATAL VITAMIN TAB PO SCH (09:00)
[2016-11-15] MEDS: ONDANSETRON 4MG/2ML VIAL (J2405) IV PRN ×2 (09:12→17:22)
[2016-11-15] MEDS ORDERED: METOCLOPRAMIDE INJ 10MG/2ML VIAL (J2765) IV ONE (11:00)
[2016-11-15] MEDS ORDERED: PENICILLIN G POTASSIUM IV 2.5 MU in D5W 100 ML IV SCH (11:00)
[2016-11-15] MEDS: OMEPRAZOLE 20 MG CAP PO SCH (14:53)
[2016-11-16 05:35] VITALS: BP 120/70
[2016-11-16] MEDS: OMEPRAZOLE 20 MG CAP PO SCH (07:54)
[2016-11-16] MEDS: PRENATAL VITAMIN TAB PO SCH (07:54)
[2016-11-16 18:10] VITALS: BP 119/70
[2016-11-17 05:42] VITALS: BP 109/59
[2016-11-17] MEDS ORDERED: IBUP-1114 PO (08:44)
[2016-11-17] MEDS ORDERED: ACET50TA PO (08:44)
[2016-11-17] MEDS: PRENATAL VITAMIN TAB PO SCH (08:52)
[2016-11-17] MEDS: OMEPRAZOLE 20 MG CAP PO SCH (08:52)
[2016-11-17] MEDS ORDERED: ADACEL/BOOSTRIX VACCINE (DIPHTH/PERTUSS/ACELL/TETANUS)0.5ML SYR (90715) IM ONE (12:00)
[2016-11-20 00:06] LABS: GC Carboxy THC >300 ng/mL (Cutoff=10)
== END 2016-11-17 14:05 | disposition home or self-care (01) | DRG 560 ==
LOC: M LDO 06:18 → M LDI 06:25 → M OBS 09:50
PROVIDERS: ADMIT Specialist; ATTEND Specialist
PROC: 10E0XZZ Delivery of Products of Conception, External Approach (ICD-10-PCS; principal; 2016-11-15)
DX: O60.14X0 Preterm labor third trimester with preterm delivery third trimester, not applicable or unspecified (principal); O09.30 Supervision of pregnancy with insufficient antenatal care, unspecified trimester; Z3A.36 36 weeks gestation of pregnancy; Z37.0 Single live birth

== ENCOUNTER 2018-03-20 00:53 | Emergency (ER) | payer MEDICAID ==
[2018-03-20] MEDS: NS 1,000 ML IV (03:54)
[2018-03-20] MEDS: ONDANSETRON 4MG/2ML VIAL (J2405) IV (03:54)
[2018-03-20 03:59] LABS: BASO % 0.2 % (0.0-1.0); EOS % 0.1 % (0.0-3.0); HEMATOCRIT 40.5 % (36.0-47.0); HEMOGLOBIN 13.7 g/dl (12.0-15.5); IMMATURE GRANULOCYTE % 0.2 % (0-3.0); LYMPH # 1.5 10^3/uL (1.5-4.5); LYMPH % 16.4 % (24.0-44.0); MEAN CORPUSCULAR HEMOGLOBIN 29.8 pg (27.0-33.0); MEAN CORPUSCULAR HGB CONC 33.8 g/dl (32.0-36.5); MEAN CORPUSCULAR VOLUME 88.2 fl (80.0-96.0); MONO # 0.7 10^3/uL (0.0-0.8); MONO % 8.1 % (0.0-5.0); NEUTROPHILS # 6.8 10^3/uL (1.8-7.7); PLATELET COUNT, AUTOMATED 270 10^3/uL (150-450); RED BLOOD COUNT 4.59 10^6/uL (4.00-5.40); RED CELL DISTRIBUTION WIDTH 13.3 % (11.5-14.5)
[2018-03-20 04:16] LABS: CONTROL LINE HCG INT CTR LINE PRESENT; HCG, SERUM QUALITATIVE POSITIVE (NEGATIVE)
[2018-03-20 04:22] LABS: ALBUMIN 3.6 GM/DL (3.2-5.2); ALBUMIN/GLOBULIN RATIO 0.75 (1.00-1.93); ALKALINE PHOSPHATASE 86 U/L (45-117); ALT/SGPT 29 U/L (12-78); ANION GAP 12 MEQ/L (8-16); AST/SGOT 15 U/L (7-37); BILIRUBIN,DIRECT 0.2 MG/DL (0.0-0.2); BILIRUBIN,TOTAL 0.5 MG/DL (0.2-1.0); BLOOD UREA NITROGEN 11 MG/DL (7-18); CALCIUM LEVEL 8.9 MG/DL (8.5-10.1); CARBON DIOXIDE LEVEL 24 MEQ/L (21-32); CHLORIDE LEVEL 102 MEQ/L (98-107); CREATININE FOR GFR 0.53 MG/DL (0.55-1.30); GLOMERULAR FILTRATION RATE > 60.0 (>60); GLUCOSE, FASTING 73 MG/DL (70-100); LIPASE 99 U/L (73-393); POTASSIUM SERUM 3.2 MEQ/L (3.5-5.1); SODIUM LEVEL 138 MEQ/L (136-145); TOTAL PROTEIN 8.4 GM/DL (6.4-8.2)
[2018-03-20 05:28] LABS: KETONE, URINE AUTO RFX 2+ mg/dL (NEGATIVE); LEUKOCYTE ESTERASE UR AUTO RFX NEGATIVE (NEGATIVE); MUCUS, URINE RFX SMALL (NEGATIVE); NITRITE, URINE AUTO RFX NEGATIVE (NEGATIVE); RBC, URINE AUTO RFX 3 /HPF (0-3); SPECIFIC GRAVITY UR AUTO RFX 1.023 (1.002-1.035); SQUAM EPITHELIAL CELL UR AURFX 3 /HPF (0-6); WBC, URINE AUTO RFX 1 /HPF (0-3)
== END 2018-03-20 07:04 | disposition home or self-care (01) ==
LOC: M ED 00:53
DX: O21.0 Mild hyperemesis gravidarum (principal); O99.320 Drug use complicating pregnancy, unspecified trimester
CPT/HCPCS: J2405

== ENCOUNTER → 2018-05-01 | Outpatient (REF) | payer OTHER ==
[2018-05-01 14:29] LABS: HEMOGLOBIN 13.7 g/dl (12.0-15.5); MEAN CORPUSCULAR HEMOGLOBIN 30.2 pg (27.0-33.0); MEAN CORPUSCULAR HGB CONC 33.4 g/dl (32.0-36.5); MEAN CORPUSCULAR VOLUME 90.5 fl (80.0-96.0); PLATELET COUNT, AUTOMATED 295 10^3/uL (150-450); RED BLOOD COUNT 4.53 10^6/uL (4.00-5.40); RED CELL DISTRIBUTION WIDTH 13.9 % (11.5-14.5); WHITE BLOOD COUNT 9.9 10^3/uL (4.0-10.0)
[2018-05-01 15:13] LABS: FREE T4 1.09 NG/DL (0.76-1.46); HCG, SERUM QUANTITATIVE 15502 MIU/ML; THYROID STIMULATING HORMONE 0.638 uIU/ML (0.358-3.740)
[2018-05-02 11:43] LABS: RUBELLA IgG QUALITATIVE IMMUNE (IMMUNE)
[2018-05-02 11:50] LABS: HBsAg Prenatal NEGATIVE (NEGATIVE)
[2018-05-02 12:12] LABS: HEPATITIS C VIRUS ABY INDEX 0.1 INDEX (<0.8)
[2018-05-02 12:13] LABS: HIV 1&2 SCREEN CENTAUR NEGATIVE (NEGATIVE)
== END ==
LOC: M LAB REF 12:52
DX: O36.80X0 Pregnancy with inconclusive fetal viability, not applicable or unspecified (principal)

== ENCOUNTER 2018-08-05 14:41 | Outpatient (CLI) | payer OTHER ==
[~2018-08-05] VITALS: Ht 149.9 cm; Wt 65.5 kg
[~2018-08-05 14:41] MED LIST changes: +DICL10TA PO; +IBUP-1114 PO; +MAPA500T17 PO; +ZOFR4TAB14 PO
[2018-08-05 14:57] VITALS: BP 141/70
[2018-08-05] MEDS ORDERED: LR 1,000 ML IV ONE (15:15)
[2018-08-05] MEDS ORDERED: AZITHROMYCIN INJ 500 MG, VIAL MATE ADAPTER 1 EACH in D5W 250 ML IV ONE (15:15)
[2018-08-05] MEDS ORDERED: RANI1SYP PO (15:17)
[2018-08-05 15:46] LABS: BASO % 0.2 % (0.0-1.0); EOS % 0.3 % (0.0-3.0); HEMATOCRIT 34.4 % (36.0-47.0); HEMOGLOBIN 11.2 g/dl (12.0-15.5); LYMPH # 2.2 10^3/uL (1.5-4.5); LYMPH % 16.1 % (24.0-44.0); MEAN CORPUSCULAR HEMOGLOBIN 29.4 pg (27.0-33.0); MEAN CORPUSCULAR HGB CONC 32.6 g/dl (32.0-36.5); MEAN CORPUSCULAR VOLUME 90.3 fl (80.0-96.0); MONO # 0.7 10^3/uL (0.0-0.8); MONO % 5.1 % (0.0-5.0); NEUTROPHILS # 10.8 10^3/uL (1.8-7.7); NEUTROPHILS % 77.8 % (36.0-66.0); PLATELET COUNT, AUTOMATED 240 10^3/uL (150-450); RED BLOOD COUNT 3.81 10^6/uL (4.00-5.40); WHITE BLOOD COUNT 13.8 10^3/uL (4.0-10.0)
[2018-08-05 16:29] VITALS: BP 123/66
[2018-08-05] MEDS ORDERED: BETAMETHASONE SOLUSPAN 6MG/ML INJ 5ML (J0702) IM ONE (17:30)
[2018-08-05 18:08] VITALS: BP 118/70
[2018-08-05 18:28] LABS: AMPHETAMINES LEVEL URINE NEGATIVE (NEGATIVE); BARBITURATES URINE NEGATIVE (NEGATIVE); BENZODIAZEPINES URINE NEGATIVE (NEGATIVE); CANNABINOIDS URINE POSITIVE (NEGATIVE); COCAINE METABOLITE URINE NEGATIVE (NEGATIVE); METHADONE URINE NEGATIVE (NEGATIVE); OPIATES URINE NEGATIVE (NEGATIVE); PHENCYCLIDINE URINE NEGATIVE (NEGATIVE)
--- NOTE | 2018-08-05 18:33 | HPE ---
DATE OF ADMISSION: 08/05/2018 Rosemarie is a 32-year-old female, 7, para 0-6-0-6 with a history of six deliveries from 34-36 weeks gestation. She is approximately 28 weeks gestation by a 16-week ultrasound. She presented to labor and delivery with complaint of gross leakage of fluid since 2 p.m. She denies any contractions. She does have occasional cramping. No bleeding. Upon evaluation in labor and delivery, she was found to be grossly ruptured with a reassuring tracing for a 28 weeker. Her cervix was found to be 2 cm dilated, thick, and posterior with clear fluid. Her record reviewed. She is a late transfer to the office. She initiated [place]; however, was not compliant with her [place] injections. Her last injection in the office was on 07/25/2018 and prior to that was some time in May. labs reviewed. Blood type is B positive, rubella immune. Hepatitis negative, HIV negative, GC/chlamydia were negative. One-hour sugar testing was within normal limits. GBS unknown. OBSTETRICAL HISTORY: Significant for delivery at 36 weeks in 2003, complicated by chorioamnionitis. The rest of her deliveries were between 34 and 36 weeks with no other complications. PAST MEDICAL HISTORY: Significant for gastritis. PAST SURGICAL HISTORY: Laparoscopic cholecystectomy. SOCIAL HISTORY: The patient is a former smoker. She denies any alcohol. She reports that she was a former marijuana user and denies any current use. MEDICATION: Consistent with vitamin, Zantac 150 mg. ALLERGIES: No known drug allergies. PHYSICAL EXAMINATION: A normal-appearing female in no acute distress. HEENT: Grossly within normal limits. ABDOMEN: Soft, nontender, nondistended. EXTREMITIES: No clubbing, cyanosis, or edema. Vaginal exam: Gross rupture of membrane with clear fluid pooling in the vagina. Nitrazine positive. Digital exam shows the cervix that is 2 cm dilated, thick, and posterior. Tracing reviewed. Reassuring tracing for 28-weeker. No evidence of any decelerations. heart rate baseline of 140s or 150s. No measurable contractions. INITIAL LABORATORIES: CBC shows a white count of 13.8, hemoglobin and h mt of 11.2/34.4 with a platelet of 240, neutrophils 77. Urine toxicology pending. GBS and GC/chlamydia pending. ASSESSMENT: 1. Intrauterine at 28 weeks gestation with gross rupture of membrane. 2. History of prior labor times six. 3. Unknown GBS. PLAN: The patient will be admitted to the labor floor. Intravenous (IV) fluids initiated. The patient started on azithromycin and Ancef. First dose of betamethasone given. Her cultures are pending. A phone call was made to [facility] for maternal transfer. Spoke to Dr. Valdovinos. Case discussed in details. He Agrees with transfer. The patient will be transferred to [facility] for higher level of care. This was discussed with the patient and her family in great details. All agreed to the transfer. The risk and benefit of the transfer were also discussed. Arrangement made to transfer the patient to [facility]. BRODERICK
[2018-08-05 19:45] LABS: CHLAMYDIA DNA AMPLIFICATION NEGATIVE (NEGATIVE); GC DNA AMPLIFICATION NEGATIVE (NEGATIVE)
== END 2018-08-05 19:05 | disposition short-term general hospital (02) ==
LOC: M LDO 14:41
PROVIDERS: ATTEND Obstetrics & Gynecology
DX: O42.913 Preterm premature rupture of membranes, unspecified as to length of time between rupture and onset of labor, third trimester (principal); O09.213 Supervision of pregnancy with history of pre-term labor, third trimester; Z3A.28 28 weeks gestation of pregnancy; Z87.891 Personal history of nicotine dependence; Z91.14 Patient's other noncompliance with medication regimen
CPT/HCPCS: 59025; 80307; 85025; 86780; 86850; 86900; 86901; 87081; 87491; 87591; 96372; 96374; 96375; J0456; J0690; J0702

== ENCOUNTER 2018-11-22 16:28 | Emergency (ER) | payer OTHER ==
[~2018-11-22] VITALS: Ht 149.9 cm; Wt 69.1 kg
[~2018-11-22 16:28] MED LIST changes: -MAPA500T17 PO; +MAPA500T2 PO; +RANI1SYP PO
[2018-11-22] MEDS ORDERED: SUCRALFATE SUSP 1GM/10ML UD PO ONE (17:00)
[2018-11-22] MEDS ORDERED: GI COCKTAIL 50ML BTL(HYOSCYAMINE/MAALOX/LIDOCAINE VISCOUS)(1:3:1) PO ONE (17:00)
[2018-11-22 17:18] LABS: APPEARANCE, URINE HAZY (CLEAR); BACTERIA, URINE AUTO NEGATIVE (NEGATIVE); BILIRUBIN, URINE AUTO NEGATIVE (NEGATIVE); BLOOD, URINE BLOOD 2+ (NEGATIVE); COLOR, URINE YELLOW (YELLOW); GLUCOSE, URINE (UA) AUTO NEGATIVE (NEGATIVE); KETONE, URINE AUTO NEGATIVE (NEGATIVE); LEUKOCYTE ESTERASE, URINE AUTO NEGATIVE (NEGATIVE); MUCUS, URINE SMALL (NEGATIVE); NITRITE, URINE AUTO NEGATIVE (NEGATIVE); PROTEIN, URINE AUTO 1+ mg/dL (NEGATIVE); RBC, URINE AUTO 49 /HPF (0-3); SPECIFIC GRAVITY URINE AUTO 1.019 (1.002-1.035); SQUAMOUS EPITHELIAL CELL UR AU 1 /HPF (0-6); UROBILINOGEN, URINE AUTO 0.2 mg/dL (0.0-2.0); WBC, URINE AUTO 4 /HPF (0-3)
--- NOTE | 2018-11-22 17:25 | REP ---
Clinical: Left posterior rib pain Technique: Frontal view of the chest with four views of the left hemithorax. Findings: Frontal view of the chest demonstrates no acute cardiopulmonary process. Multiple views of the left hemithorax demonstrates no obvious acute rib fracture or pathology. Impression: Normal left rib series Electronically Signed by Rafa Gonzalez MD 11/22/2018 05:16 P
[2018-11-22 17:52] VITALS: BP 138/100
[2018-11-22] MEDS ORDERED: ONDANSETRON 4 MG ORAL DISINTEGRATING TAB (Q0162 PER 1MG) PO ONE (18:00)
[2018-11-22] MEDS ORDERED: MORPHINE 10 MG/ML 1ML VIAL (J2270) IM ONE (18:00)
[2018-11-22] MEDS ORDERED: METHOCARBAMOL 500 MG TAB PO ONE (18:00)
== END 2018-11-22 18:30 | disposition left against medical advice (07) ==
LOC: M ED 16:28
DX: M54.6 Pain in thoracic spine (principal); F17.210 Nicotine dependence, cigarettes, uncomplicated
CPT/HCPCS: 71101; 81001; 81025; 96372; 99283; J2270; Q0162

== ENCOUNTER 2018-11-24 04:40 | Emergency (ER) | payer OTHER ==
[2018-11-24] MEDS ORDERED: REGL10TA6 PO (05:42)
[2018-11-24] MEDS ORDERED: METOCLOPRAMIDE INJ 10MG/2ML VIAL (J2765) IV ONE (05:45)
[2018-11-24] MEDS ORDERED: NS 1,000 ML IV ONE (05:45)
[2018-11-24 06:23] LABS: BASO % 0.3 % (0.0-1.0); HEMATOCRIT 44.1 % (36.0-47.0); HEMOGLOBIN 14.1 g/dl (12.0-15.5); LYMPH # 1.3 10^3/uL (1.5-4.5); LYMPH % 8.1 % (24.0-44.0); MEAN CORPUSCULAR HEMOGLOBIN 25.4 pg (27.0-33.0); MEAN CORPUSCULAR VOLUME 79.5 fl (80.0-96.0); MONO # 0.2 10^3/uL (0.0-0.8); MONO % 1.4 % (0.0-5.0); NEUTROPHILS # 13.8 10^3/uL (1.8-7.7); NEUTROPHILS % 89.7 % (36.0-66.0); PLATELET COUNT, AUTOMATED 416 10^3/uL (150-450); RED BLOOD COUNT 5.55 10^6/uL (4.00-5.40); WHITE BLOOD COUNT 15.4 10^3/uL (4.0-10.0)
[2018-11-24 06:56] LABS: ALBUMIN 4.4 GM/DL (3.2-5.2); ALT/SGPT 24 U/L (12-78); BILIRUBIN,DIRECT 0.1 MG/DL (0.0-0.2); BILIRUBIN,TOTAL 0.4 MG/DL (0.2-1.0); BLOOD UREA NITROGEN 18 MG/DL (7-18); CALCIUM LEVEL 9.7 MG/DL (8.5-10.1); CARBON DIOXIDE LEVEL 27 MEQ/L (21-32); CHLORIDE LEVEL 100 MEQ/L (98-107); CREATININE FOR GFR 0.91 MG/DL (0.55-1.30); GLOMERULAR FILTRATION RATE > 60.0 (>60); GLUCOSE, FASTING 141 MG/DL (70-100); LIPASE 78 U/L (73-393); POTASSIUM SERUM 3.7 MEQ/L (3.5-5.1); SODIUM LEVEL 136 MEQ/L (136-145); TOTAL PROTEIN 9.2 GM/DL (6.4-8.2)
[2018-11-24 06:57] LABS: HCG, SERUM QUALITATIVE NEGATIVE (NEGATIVE)
[2018-11-24 07:45] VITALS: BP 120/75
[2018-11-24 07:50] LABS: APPEARANCE, URINE CLEAR (CLEAR); BACTERIA, URINE AUTO NEGATIVE (NEGATIVE); BILIRUBIN, URINE AUTO NEGATIVE (NEGATIVE); BLOOD, URINE BLOOD 2+ (NEGATIVE); COLOR, URINE YELLOW (YELLOW); GLUCOSE, URINE (UA) AUTO NEGATIVE (NEGATIVE); KETONE, URINE AUTO 2+ mg/dL (NEGATIVE); LEUKOCYTE ESTERASE, URINE AUTO NEGATIVE (NEGATIVE); MUCUS, URINE SMALL (NEGATIVE); NITRITE, URINE AUTO NEGATIVE (NEGATIVE); PROTEIN, URINE AUTO 2+ mg/dL (NEGATIVE); RBC, URINE AUTO 5 /HPF (0-3); SPECIFIC GRAVITY URINE AUTO 1.031 (1.002-1.035); SQUAMOUS EPITHELIAL CELL UR AU 1 /HPF (0-6); WBC, URINE AUTO 3 /HPF (0-3)
== END 2018-11-24 08:07 | disposition left against medical advice (07) ==
LOC: M ED 04:40
DX: K52.9 Noninfective gastroenteritis and colitis, unspecified (principal)
CPT/HCPCS: 80048; 80076; 81001; 83690; 84703; 85025; 87086; 96374; 99284; J2765

== ENCOUNTER 2018-11-26 14:21 | Emergency (ER) | payer OTHER ==
[~2018-11-26] VITALS: Ht 149.9 cm; Wt 69.1 kg
[~2018-11-26 14:21] MED LIST changes: +REGL10TA6 PO
[2018-11-26] MEDS ORDERED: NS 1,000 ML IV ONE (14:45)
[2018-11-26] MEDS ORDERED: PROMETHAZINE INJ 25 MG/ML VIAL (J2550) IV ONE (14:45)
[2018-11-26 15:03] LABS: BASO # 0.1 10^3/uL (0.0-0.2); BASO % 0.4 % (0.0-1.0); EOS % 0.2 % (0.0-3.0); HEMATOCRIT 43.7 % (36.0-47.0); HEMOGLOBIN 14.1 g/dl (12.0-15.5); LYMPH # 2.2 10^3/uL (1.5-4.5); LYMPH % 17.7 % (24.0-44.0); MEAN CORPUSCULAR HEMOGLOBIN 25.6 pg (27.0-33.0); MEAN CORPUSCULAR HGB CONC 32.3 g/dl (32.0-36.5); MEAN CORPUSCULAR VOLUME 79.3 fl (80.0-96.0); MONO # 0.8 10^3/uL (0.0-0.8); MONO % 6.4 % (0.0-5.0); NEUTROPHILS # 9.3 10^3/uL (1.8-7.7); NEUTROPHILS % 74.8 % (36.0-66.0); PLATELET COUNT, AUTOMATED 433 10^3/uL (150-450); RED BLOOD COUNT 5.51 10^6/uL (4.00-5.40); WHITE BLOOD COUNT 12.4 10^3/uL (4.0-10.0)
[2018-11-26] MEDS ORDERED: GI COCKTAIL 50ML BTL(HYOSCYAMINE/MAALOX/LIDOCAINE VISCOUS)(1:3:1) PO ONE (15:30)
[2018-11-26 15:43] LABS: ALBUMIN 4.3 GM/DL (3.2-5.2); ALT/SGPT 42 U/L (12-78); BILIRUBIN,DIRECT 0.3 MG/DL (0.0-0.2); BILIRUBIN,TOTAL 0.9 MG/DL (0.2-1.0); BLOOD UREA NITROGEN 21 MG/DL (7-18); CALCIUM LEVEL 9.4 MG/DL (8.5-10.1); CARBON DIOXIDE LEVEL 32 MEQ/L (21-32); CHLORIDE LEVEL 94 MEQ/L (98-107); CREATININE FOR GFR 0.88 MG/DL (0.55-1.30); GLOMERULAR FILTRATION RATE > 60.0 (>60); GLUCOSE, FASTING 100 MG/DL (70-100); LIPASE 112 U/L (73-393); SODIUM LEVEL 135 MEQ/L (136-145); TOTAL PROTEIN 8.8 GM/DL (6.4-8.2)
[2018-11-26] MEDS ORDERED: KCL 10MEQ/100ML SWI (KRUN) 10 MEQ in APPROPRIATE DILUENT 1 EA IV ONE (16:00)
[2018-11-26] MEDS ORDERED: ISOVUE-370 76% 100ML VIAL (Q9967) As Ordered ONE (16:35)
--- NOTE | 2018-11-26 17:16 | REP ---
CT of the abdomen and pelvis with IV contrast, without bowel contrast: There are no comparisons. The visualized lung martinez are unremarkable. The liver, pancreas and spleen are unremarkable. There are surgical clips in the gallbladder fossa. The adrenals, kidneys and abdominal aorta are unremarkable. There is no bowel distension or obstruction. There are no inflammatory changes in the mesentery. There is no ascites. No bowel wall thickening. Pelvis: There is no colonic diverticulosis or diverticulitis. The bladder is unremarkable. There is a 1.9 cm left ovarian follicle. The right adnexa is unremarkable. The uterus is unremarkable. There is no pelvic adenopathy or ascites. Impression: There is a 1.9 cm left adnexal follicle. No free fluid in the pelvis. Cholecystectomy. Otherwise, negative CT of the abdomen and pelvis. Electronically Signed by Rj Wu MD 11/26/2018 05:07 P
[2018-11-26] MEDS ORDERED: PRIL20TA2 PO (17:27)
[2018-11-26] MEDS ORDERED: PROM1SUP2 PR (17:27)
[2018-11-26] MEDS ORDERED: K-TA10TA2 PO (17:27)
[2018-11-26 17:42] VITALS: BP 148/82
== END 2018-11-26 17:49 | disposition home or self-care (01) ==
LOC: M ED 14:21
DX: K29.70 Gastritis, unspecified, without bleeding (principal); E87.6 Hypokalemia; N83.202 Unspecified ovarian cyst, left side
CPT/HCPCS: 74177; 80048; 80076; 81001; 83690; 85025; 87086; 96365; 96366; 96375; 99284; Q9967

== ENCOUNTER 2019-06-20 17:56 | Emergency (ER) | payer OTHER ==
[~2019-06-20] VITALS: Ht 149.9 cm; Wt 68.2 kg
[~2019-06-20 17:56] MED LIST changes: +K-TA10TA2 PO; +PRIL20TA2 PO; +PROM1SUP2 PR
[2019-06-20] MEDS ORDERED: CYCLOBENZAPRINE 10 MG TAB PO ONE (20:00)
[2019-06-20] MEDS ORDERED: KETOROLAC 60 MG/2 ML VIAL (J1885) IM ONE (20:00)
[2019-06-20 21:02] VITALS: BP 123/71
[2019-06-20] MEDS ORDERED: CYCL10TA PO (21:21)
[2019-06-20] MEDS ORDERED: PRED10TA2 PO (21:21)
== END 2019-06-20 21:30 | disposition home or self-care (01) ==
LOC: EDBD 17:56 → M ED 17:56
DX: S39.012A Strain of muscle, fascia and tendon of lower back, initial encounter (principal); X50.9XXA Other and unspecified overexertion or strenuous movements or postures, initial encounter; Y92.002 Bathroom of unspecified non-institutional (private) residence as the place of occurrence of the external cause; Y93.E1 Activity, personal bathing and showering; K29.70 Gastritis, unspecified, without bleeding; Z90.49 Acquired absence of other specified parts of digestive tract; F17.210 Nicotine dependence, cigarettes, uncomplicated
CPT/HCPCS: 96372; 99284; J1885

== ENCOUNTER → 2020-03-15 | Outpatient (CLI) | payer OTHER ==
[~2020-03-15] MED LIST changes: +CYCL-707 PO; +PRED10TA2 PO
--- NOTE | 2020-05-06 08:16 | REP ---
FIRST TRIMESTER OBSTETRICAL ULTRASOUND: HISTORY: Pelvic pain. For dating and viability. TECHNIQUE: Transabdominal first trimester obstetrical ultrasound with color Doppler evaluation. FINDINGS: The uterus measures 10.8 x 7.5 x 8.0 cm. Early intrauterine including gestational sac with yolk sac and pole are identified. CRL of 24 mm corresponds to 9 weeks 1 day gestational age with estimated date of delivery 10/17/2020. heart rate equals 178 beats per minute. The placenta is noted posteriorly. The bilateral maternal ovaries appear normal. A very small subchorionic hemorrhage measuring 1 x 4 x 4 mm is suggested. IMPRESSION: 1. Single live early intrauterine at 9 weeks 1 day gestational age. Complete anatomical assessment should be performed at 19-20 weeks. 2. A very small subchorionic hemorrhage likely to resolve. MTDD
== END ==
LOC: M RAD 12:51
PROVIDERS: ATTEND Nurse Practitioner Family
DX: Z32.01 Encounter for pregnancy test, result positive (principal); Z3A.09 9 weeks gestation of pregnancy

== ENCOUNTER 2021-01-06 09:27 | Emergency (ER) | payer OTHER ==
[~2021-01-06] VITALS: Ht 149.9 cm; Wt 82.7 kg
[2021-01-06 09:27] VITALS: BP 139/77
[2021-01-06] MEDS ORDERED: IBUPROFEN 600MG TAB PO ONE (09:50)
[2021-01-06] MEDS ORDERED: ACETAMINOPHEN TAB 650MG DOSE (2X325MG) PO ONE (09:50)
--- NOTE | 2021-01-06 10:03 | REP ---
INDICATION: twisted ankle COMPARISON: None. TECHNIQUE: AP, lateral, bilateral oblique views. FINDINGS: Lateral swelling consistent with inversion injury. No obvious acute fracture or dislocation. Ankle mortise intact. IMPRESSION: Lateral swelling consistent with inversion injury. No obvious acute fracture or dislocation. <Electronically signed by Rafa Gonzalez > 01/06/21 [id number]
--- NOTE | 2021-01-06 10:04 | REP ---
INDICATION: injury COMPARISON: None. TECHNIQUE: AP, lateral, bilateral oblique views right foot. FINDINGS: The osseous structures and joint spaces are intact and normal. There is no evidence for acute fracture or dislocation. Surrounding soft tissues are unremarkable. No subcutaneous emphysema or radiodense foreign body. IMPRESSION: . No acute fracture or dislocation. <Electronically signed by Rafa Gonzalez > 01/06/21 1000
== END 2021-01-06 10:26 | disposition home or self-care (01) ==
LOC: M ED 09:27
DX: S93.401A Sprain of unspecified ligament of right ankle, initial encounter (principal); W18.43XA Slipping, tripping and stumbling without falling due to stepping from one level to another, initial encounter; Y92.009 Unspecified place in unspecified non-institutional (private) residence as the place of occurrence of the external cause; Y93.9 Activity, unspecified; Y99.9 Unspecified external cause status

== ENCOUNTER → 2024-03-18 | Outpatient (CLI) | payer OTHER ==
[~2024-03-18] MED LIST changes: -K-TA10TA2 PO; +POTA-165 PO
[2024-03-18 10:12] LABS: HEMATOCRIT 41.1 % (36.0-47.0); HEMOGLOBIN 13.5 g/dl (12.0-15.5); MEAN CORPUSCULAR HEMOGLOBIN 28.8 pg (27.0-33.0); MEAN CORPUSCULAR HGB CONC 32.8 g/dl (32.0-36.5); MEAN CORPUSCULAR VOLUME 87.8 fl (80.0-96.0); PLATELET COUNT, AUTOMATED 278 10^3/uL (150-450); RED BLOOD COUNT 4.68 10^6/uL (4.00-5.40); WHITE BLOOD COUNT 10.8 10^3/uL (4.0-10.0)
[2024-03-18 11:09] LABS: HIV 1&2 SCREEN NEGATIVE (NEGATIVE)
[2024-03-18 11:18] LABS: HEPATITIS C VIRUS ABY INDEX < 0.02 INDEX (<0.8)
[2024-03-18 12:10] LABS: GC DNA AMPLIFICATION NEGATIVE (NEGATIVE)
== END ==
LOC: M PLALAB 08:19
PROVIDERS: ATTEND Specialist
DX: O09.522 Supervision of elderly multigravida, second trimester (principal); Z3A.00 Weeks of gestation of pregnancy not specified

== ENCOUNTER → 2024-03-18 | Outpatient (CLI) | payer OTHER | LOC: M WHC 07:57 | PROVIDERS: ATTEND Specialist | DX: O09.522 Supervision of elderly multigravida, second trimester (principal); Z3A.00 Weeks of gestation of pregnancy not specified; Z53.9 Procedure and treatment not carried out, unspecified reason ==

== ENCOUNTER → 2024-04-22 | Outpatient (CLI) | payer OTHER | LOC: M WHC 08:47 | PROVIDERS: ATTEND Specialist | DX: O09.522 Supervision of elderly multigravida, second trimester (principal); Z3A.20 20 weeks gestation of pregnancy ==

== ENCOUNTER → 2024-07-09 | Outpatient (CLI) | payer OTHER ==
[~2024-07-09] MED LIST changes: +OMEP10CASR PO; +POTA1TAB23 PO
[2024-07-09 11:05] LABS: HEMATOCRIT 38.5 % (36.0-47.0); HEMOGLOBIN 12.9 g/dl (12.0-15.5); MEAN CORPUSCULAR HEMOGLOBIN 29.3 pg (27.0-33.0); MEAN CORPUSCULAR HGB CONC 33.5 g/dl (32.0-36.5); MEAN CORPUSCULAR VOLUME 87.5 fl (80.0-96.0); PLATELET COUNT, AUTOMATED 344 10^3/uL (150-450); WHITE BLOOD COUNT 13.8 10^3/uL (4.0-10.0)
[2024-07-09 11:18] LABS: APPEARANCE, URINE HAZY (CLEAR); BACTERIA, URINE AUTO 1+ (NEGATIVE); BILIRUBIN, URINE AUTO 1+ (NEGATIVE); BLOOD, URINE BLOOD NEGATIVE (NEGATIVE); COLOR, URINE AMBER (YELLOW); GLUCOSE, URINE (UA) AUTO 1+ mg/dL (NEGATIVE); KETONE, URINE AUTO 2+ mg/dL (NEGATIVE); LEUKOCYTE ESTERASE, URINE AUTO NEGATIVE (NEGATIVE); MUCUS, URINE MODERATE (NEGATIVE); NITRITE, URINE AUTO NEGATIVE (NEGATIVE); PROTEIN, URINE AUTO 2+ mg/dL (NEGATIVE); RBC, URINE AUTO 1 /HPF (0-3); SPECIFIC GRAVITY URINE AUTO 1.029 (1.002-1.035); SQUAMOUS EPITHELIAL CELL UR AU 4 /HPF (0-6); WBC, URINE AUTO 5 /HPF (0-3)
[2024-07-09 11:51] LABS: HIV 1&2 SCREEN NEGATIVE (NEGATIVE)
[2024-07-09 11:59] LABS: HEPATITIS C VIRUS ABY INDEX < 0.02 INDEX (<0.8)
[2024-07-09 12:01] LABS: ALBUMIN 2.8 G/DL (3.2-5.2); ALKALINE PHOSPHATASE 192 U/L (35-104); ALT/SGPT 38 U/L (7.0-40); AST/SGOT 49 U/L (<34); BILIRUBIN,TOTAL 0.8 MG/DL (0.3-1.2); BLOOD UREA NITROGEN < 5 MG/DL (9-23); CALCIUM LEVEL 9.8 MG/DL (8.5-10.1); CARBON DIOXIDE LEVEL 20 MMOL/L (20-31); CHLORIDE LEVEL 100 MMOL/L (98-107); CREATININE FOR GFR 0.57 MG/DL (0.55-1.30); GLOMERULAR FILTRATION RATE > 60.0 (>60); GLUCOSE CHALLENGE TEST 1 HOUR 188 MG/DL (LESS THAN 140); GLUCOSE, FASTING 188 MG/DL (60-100); SODIUM LEVEL 133 MMOL/L (136-145); TOTAL PROTEIN 7.7 G/DL (5.7-8.2)
[2024-07-09 13:16] LABS: GC DNA AMPLIFICATION NEGATIVE (NEGATIVE)
== END ==
LOC: M PLALAB 08:08
PROVIDERS: ATTEND Nurse Practitioner Family
DX: O09.523 Supervision of elderly multigravida, third trimester (principal); Z3A.00 Weeks of gestation of pregnancy not specified

== ENCOUNTER 2024-07-13 08:55 | Outpatient (CLI) | payer OTHER ==
[~2024-07-13] VITALS: Ht 149.9 cm; Wt 79.4 kg
[2024-07-13] VITALS (13 sets, daily range): BP systolic 110–151; BP diastolic 63–85
[~2024-07-13 08:55] MED LIST changes: -OMEP10CASR PO; -POTA1TAB23 PO
[2024-07-13] MEDS ORDERED: OMEP10CASR PO (09:25)
[2024-07-13 10:36] LABS: BASO % 0.4 % (0.0-1.0); EOS % 0.2 % (0.0-3.0); HEMATOCRIT 33.4 % (36.0-47.0); HEMOGLOBIN 11.1 g/dl (12.0-15.5); LYMPH # 1.7 10^3/uL (1.5-5.0); LYMPH % 15.2 % (24.0-44.0); MEAN CORPUSCULAR HEMOGLOBIN 28.9 pg (27.0-33.0); MEAN CORPUSCULAR HGB CONC 33.2 g/dl (32.0-36.5); MONO # 0.5 10^3/uL (0.0-0.8); MONO % 4.1 % (2.0-8.0); NEUTROPHILS # 8.7 10^3/uL (1.5-8.5); NEUTROPHILS % 79.2 % (36.0-66.0); PLATELET COUNT, AUTOMATED 261 10^3/uL (150-450); RED BLOOD COUNT 3.84 10^6/uL (4.00-5.40)
[2024-07-13 11:05] LABS: ALBUMIN 2.4 G/DL (3.2-5.2); ALKALINE PHOSPHATASE 160 U/L (35-104); ALT/SGPT 71 U/L (7.0-40); AST/SGOT 66 U/L (<34); BILIRUBIN,TOTAL 0.6 MG/DL (0.3-1.2); BLOOD UREA NITROGEN 9 MG/DL (9-23); CALCIUM LEVEL 8.7 MG/DL (8.5-10.1); CARBON DIOXIDE LEVEL 24 MMOL/L (20-31); CHLORIDE LEVEL 103 MMOL/L (98-107); CREATININE FOR GFR 0.49 MG/DL (0.55-1.30); GLOMERULAR FILTRATION RATE > 60.0 (>60); GLUCOSE, FASTING 109 MG/DL (60-100); MAGNESIUM LEVEL 1.7 MG/DL (1.8-2.4); POTASSIUM SERUM 2.9 MMOL/L (3.5-5.1); SODIUM LEVEL 137 MMOL/L (136-145); TOTAL PROTEIN 6.6 G/DL (5.7-8.2)
[2024-07-13] MEDS: LACTATED RINGER'S 1000 ML IV ONE (11:34)
[2024-07-13] MEDS ORDERED: KCL 10MEQ/100ML SWI (KRUN) 10 MEQ in IV 1 EA IV SCH (12:00)
[2024-07-13] MEDS: MAG SULF 1GM/100ML (MAG RUN) 1 GM in IV 1 EA IV ONE (12:11)
[2024-07-13] MEDS: MULTIVITAMIN -ADULT INJECTION 10 ML, THIAMINE INJection 100 MG, FOLIC ACID 1 MG in NS 1... IV ONE (12:11)
[2024-07-13] MEDS: KCL 10MEQ/100ML SWI (KRUN) 10 MEQ in IV 1 EA IV SCH (13:12)
[2024-07-13] MEDS ORDERED: REGL10TA6 PO (18:23)
[2024-07-13 18:52] LABS: ALBUMIN 2.4 G/DL (3.2-5.2); ALKALINE PHOSPHATASE 161 U/L (35-104); ALT/SGPT 73 U/L (7.0-40); AST/SGOT 69 U/L (<34); BILIRUBIN,TOTAL 0.5 MG/DL (0.3-1.2); BLOOD UREA NITROGEN 6 MG/DL (9-23); CALCIUM LEVEL 8.4 MG/DL (8.5-10.1); CARBON DIOXIDE LEVEL 26 MMOL/L (20-31); CHLORIDE LEVEL 104 MMOL/L (98-107); CREATININE FOR GFR 0.58 MG/DL (0.55-1.30); GLOMERULAR FILTRATION RATE > 60.0 (>60); GLUCOSE, FASTING 75 MG/DL (60-100); POTASSIUM SERUM 3.1 MMOL/L (3.5-5.1); SODIUM LEVEL 136 MMOL/L (136-145); TOTAL PROTEIN 6.8 G/DL (5.7-8.2)
[2024-07-13] MEDS: KCL 10MEQ/100ML SWI (KRUN) 10 MEQ in IV 1 EA IV ONE (19:13)
[2024-07-13 19:38] LABS: TOTAL PROTEIN,RANDOM URINE 8.9 MG/DL (0.0-14.0)
[2024-07-13 19:43] LABS: CREATININE,RANDOM URINE 49.2 MG/DL
[2024-07-13] MEDS ORDERED: POTA1TAB23 PO (20:08)
== END 2024-07-13 20:30 | disposition home or self-care (01) ==
LOC: M LDO 08:55
PROVIDERS: ATTEND Advanced Practice Midwife
DX: O21.2 Late vomiting of pregnancy (principal); O09.523 Supervision of elderly multigravida, third trimester; O09.43 Supervision of pregnancy with grand multiparity, third trimester; O09.213 Supervision of pregnancy with history of pre-term labor, third trimester; O99.283 Endocrine, nutritional and metabolic diseases complicating pregnancy, third trimester; Z64.1 Problems related to multiparity; E87.6 Hypokalemia; Z3A.31 31 weeks gestation of pregnancy
CPT/HCPCS: 36415; 59025; 76816; 76820; 80053; 81001; 82570; 83735; 84156; 85025; 87086; 93005; G0463; J3411; J3475

== ENCOUNTER 2024-08-15 04:38 | Inpatient (IN) | payer OTHER ==
[~2024-08-15] VITALS: Ht 149.9 cm; Wt 86.0 kg
[2024-08-15] VITALS (26 sets, daily range): BP systolic 98–145; BP diastolic 53–87; O2SAT 99–100
[~2024-08-15 04:38] MED LIST changes: +OMEP10CASR PO; +POTA1TAB23 PO
[2024-08-15] MEDS ORDERED: METHYLERGONOVINE MALEATE 0.2MG/ML 1ML VIAL IM PRN (05:25)
[2024-08-15] MEDS ORDERED: TRANEXAMIC ACID INJection 1,000 MG in NS 100 ML IV PRN (05:25)
[2024-08-15] MEDS ORDERED: LIDOCAINE 1% MDV 20ML VIAL INFIL PRN (05:25)
[2024-08-15] MEDS ORDERED: CARBOPROST TROMETHAMINE 250 MCG/ML AMP IM PRN (05:25)
[2024-08-15] MEDS ORDERED: LR 1,000 ML IV SCH (05:25)
[2024-08-15] MEDS ORDERED: OXYTOCIN DRIP 30 UNITS in IV 1 EA IV PRN (05:25)
[2024-08-15] MEDS ORDERED: OXYTOCIN INJ 10UNITS/ML 1ML VIAL IM PRN (05:25)
[2024-08-15 05:41] LABS: HEMATOCRIT 34.9 % (36.0-47.0); HEMOGLOBIN 11.3 g/dl (12.0-15.5); MEAN CORPUSCULAR HEMOGLOBIN 27.4 pg (27.0-33.0); MEAN CORPUSCULAR HGB CONC 32.4 g/dl (32.0-36.5); MEAN CORPUSCULAR VOLUME 84.5 fl (80.0-96.0); PLATELET COUNT, AUTOMATED 328 10^3/uL (150-450); RED BLOOD COUNT 4.13 10^6/uL (4.00-5.40); WHITE BLOOD COUNT 12.4 10^3/uL (4.0-10.0)
[2024-08-15] MEDS: PENICILLIN G POTASSIUM 5 MU IV 5 MU in DEXTROSE 5% (D5W) MINI-BAG PLU 100 ML IV STA (05:44)
[2024-08-15] MEDS: BETAMETHASONE SOLUSPAN 6MG/ML 5ML VIAL IM SCH (05:45)
[2024-08-15 06:52] LABS: HEPATITIS C VIRUS ABY INDEX 0.02 INDEX (<0.8)
[2024-08-15] MEDS: FAMOTIDINE 20 MG TAB PO ONE (09:50)
[2024-08-15] MEDS: LR 1,000 ML IV SCH (10:00)
[2024-08-15] MEDS: PEN G POT 3,000,000 UNIT/50 ML 3,000,000 UNIT in IV 1 EA IV SCH (10:00)
[2024-08-15] MEDS: OXYTOCIN DRIP 30 UNITS in IV 1 EA IV SCH (10:00)
[2024-08-15] MEDS ORDERED: ONDANSETRON 4MG 2ML VIAL As Ordered ONE (10:37)
[2024-08-15] MEDS: ONDANSETRON 4MG 2ML VIAL IV ONE (10:41)
[2024-08-15] MEDS ORDERED: FENTANYL 2MCG/ML ROPIVACAINE 0.2% IN 0.9% NACL 100ML IVBAG As Ordered ONE (12:23)
[2024-08-15] MEDS ORDERED: EPIDURAL/PCA KEYS XX PRN (12:30)
[2024-08-15] MEDS ORDERED: diphenhydrAMINE 50MG/ML VIAL IV PRN (12:30)
[2024-08-15] MEDS ORDERED: NALOXONE INJ 0.4MG/1ML VIAL IV PRN (12:30)
[2024-08-15] MEDS ORDERED: LR 500 ML IV PRN (12:30)
[2024-08-15] MEDS ORDERED: ONDANSETRON 4MG 2ML VIAL IV PRN (12:30)
[2024-08-15] MEDS ORDERED: ePHEDrine SULFATE 25 MG/5 ML(5MG/ML) SYRINGE IVP PRN (12:30)
[2024-08-15] MEDS: FENTANYL/ROPIVACAINE/NACL BAG 100 ML EPIDURAL SCH (13:49)
[2024-08-15] MEDS: OXYTOCIN DRIP 30 UNITS in IV 1 EA IV PRN (13:50)
[2024-08-15] MEDS ORDERED: DIBUCAINE 1% OINTMENT 30GM TOP PRN (13:55)
[2024-08-15] MEDS ORDERED: RHOGAM 300MCG (1500IU) INJ IM SCH (13:55)
[2024-08-15] MEDS ORDERED: IBUPROFEN 600MG TAB PO PRN (13:55)
[2024-08-15] MEDS ORDERED: METHYLERGONOVINE MALEATE 0.2 MG TAB PO PRN (13:55)
[2024-08-15] MEDS ORDERED: ACETAMINOPHEN 325 MG TAB PO PRN (13:55)
[2024-08-15] MEDS ORDERED: IBUPROFEN 800 MG TAB PO PRN (13:55)
[2024-08-15] MEDS ORDERED: DOCUSATE SODIUM 100MG CAPSULE PO PRN (13:55)
[2024-08-15] MEDS: ONDANSETRON 4MG 2ML VIAL IV PRN (20:21)
[2024-08-15] MEDS: FAMOTIDINE 20 MG TAB PO PRN (20:25)
[2024-08-16 06:00] VITALS: BP 111/59; O2SAT 99
[2024-08-16 07:44] VITALS: BP 111/59; TEMP 97.8; O2SAT 99
[2024-08-16] MEDS: PRENATAL VITAMINS CHEWABLE TABLET PO SCH (08:03)
[2024-08-16] MEDS: ACETAMINOPHEN 500 MG TAB PO PRN (10:50)
[2024-08-16] MEDS ORDERED: HOME MED LIST COMPLETE! XX SCH (15:55)
[2024-08-16 18:06] VITALS: BP 117/58; O2SAT 100
[2024-08-17 06:00] VITALS: BP 102/53; O2SAT 100
[2024-08-17] MEDS: MEASLES,MUMPS,RUBELLA VACCINE INJ (MMR-II) SC.IMMUN ONE (09:00)
== END 2024-08-17 13:40 | disposition home or self-care (01) | DRG 560 ==
LOC: M LDO 04:38 → M LDI 05:23 → M OBS 16:06
PROVIDERS: ADMIT Advanced Practice Midwife; ATTEND Advanced Practice Midwife
PROC: 10E0XZZ Delivery of Products of Conception, External Approach (ICD-10-PCS; principal; 2024-08-15)
DX: O42.013 Preterm premature rupture of membranes, onset of labor within 24 hours of rupture, third trimester (principal); Z37.0 Single live birth; Z3A.37 37 weeks gestation of pregnancy; O09.523 Supervision of elderly multigravida, third trimester; O69.1XX0 Labor and delivery complicated by cord around neck, with compression, not applicable or unspecified